=== PATIENT | female | born 1980 | race Caucasian/White ===

== ENCOUNTER 2018-06-15 19:17 | Emergency (ER) | payer BC, SELFPAY ==
[2018-06-15 19:25] VITALS: BP 157/74; PULSE 118; RESP 22; TEMP 38.7; O2SAT 98
[2018-06-15 19:42] LABS: Bilirubin Negative (Negative); Blood Negative (Negative); Clarity Clear; Glucose Negative (Negative); Ketones Negative (Negative); Leukocyte Esterase Negative (Negative); Nitrite Negative (Negative); Urobilinogen 0.2 EU/dL (Up TO 0.2); pH 7.5 (5-8)
--- NOTE | 2018-06-15 19:53 | DI.CT_ITS ---
SYMPTOM/DIAGNOSIS: LOW ABD PAIN, FEVER ABDOMEN AND PELVIC CT: CT examination of the abdomen and pelvis was performed with a bolus infusion of 100 cc's of Omnipaque 350. Images obtained through the lung bases are unremarkable. Liver and spleen appear intact as does the pancreas. No biliary dilatation is seen. Gallbladder is contracted. Abdominal aorta is of normal diameter and no major vascular abnormality is seen. Appendix is not specifically visualized but there is no evidence of appendicitis. There is colonic wall thickening of the sigmoid with adjacent increased fat attenuation consistent with uncomplicated diverticulitis, no evidence of perforation. Adrenals are unremarkable bilaterally. Tiny nonobstructing bilateral renal calculi and small presumed right renal cortical cysts noted. Otherwise urinary tract structures unremarkable. There is an IUD in place in the uterine midline. Small fat containing umbilical hernia noted. CONCLUSION: Findings consistent with acute sigmoid diverticulitis, uncomplicated. Incidental bilateral non obstructing renal calculi noted.
--- NOTE | 2018-06-15 19:53 | W.ED.GENAD ---
Discharge Plan Disposition Patient Disposition: HOME Condition: Stable Discharge Details Chief Complaint: FlankPain Clinical Impression: Diverticulitis Primary Care Provider: Alexa Penn ED Provider: Nemesio Jamison Home Meds and New Rx's Prescriptions: New metronidazole [Flagyl] 500 mg tablet 500 mg PO TID Qty: 21 RF: 0 ciprofloxacin HCl [Cipro] 500 mg tablet 500 mg PO BID Qty: 14 RF: 0 ondansetron 4 mg tablet,disintegrating 4 mg PO TID PRN (Reason: nausea and vomiting) 5 Days Qty: 30 RF: 0 No Action Mirena 1 EACH intrauterine device 1 RF: 0 Discharge Instructions Instructions: Diverticulitis (ED) Additional Instructions: You have diverticulitis. You can take 1000mg tylenol and 600mg ibuprofen every 6 hours for pain as needed for nausea take zofran as prescribed Do not drink alcohol while taking flagyl follow up with your primary care provider within 1-2 weeks if you have severe worsening of pain, persistent vomit, or new symptoms such as chest pain or shortness of breath return to the emergency department Medical Decision Making 37 yo female who denies chronic medical problems comes in with cc of lower abdominal pain for 3 days and fevers today. Denies vomit, chest pain, sob, headaches, dysuria or frequency. .She has pain throughout the lower abdomen without guarding or rebound, no rashes noted of pelvis or abdomen. Given her fever here and pain will obtain cbc, lactate, ua and image to eval for possibel abscess vs diverticulitis vs pyelo among other pathology labs unremarkable. CT shows diverticulitis. She states pain is better with toradol and remains HD stable, feel she is appropriate for outpt management. Will start abx and return precautions given Differential Diagnosis pyelo, diverticulitis, appendicitis Imaging Data Radiologic Study: Attestation: I personally reviewed and interpreted this imaging study as follows: Imaging: CT Scan Radiologist's impression: IMPRESSION: Colonic diverticulosis, acute diverticulitis confined to the sigmoid colon. No evidence for perforation Lab Data Lab results reviewed: Yes I reviewed the patient's lab results. HPI General Mode of arrival: ambulatory. Date/Time Provider Initiated Documentation: 06/15/18 19:44. Limitations to Documentation: no limitations. Information obtained by: patient. History of Present Illness 37 year old F presents to the emergency department with the chief complaint of lower abdominal pain, described as moderate, with intensity rated at 6. Quality is described as stabbing, and is localized to the abdomen. Patient reports no radiation. Patient started experiencing this day(s) (3) and it has been constant. No relieving factors improve symptom(s), No exacerbating factors reported . Patient notes fever/chills. Patient did receive the following treatments prior to arrival, none Related Data Home Medications Medication Instructions Recorded Confirmed levonorgestrel [Mirena] 1 03/17/16 ciprofloxacin HCl [Cipro] 500 mg PO BID #14 tab 06/15/18 metronidazole [Flagyl] 500 mg PO TID #21 tab 06/15/18 ondansetron 4 mg PO TID PRN 5 Days #30 tab 06/15/18 Previous Rx's Medication Instructions Recorded ciprofloxacin HCl [Cipro] 500 mg PO BID #14 tab 06/15/18 metronidazole [Flagyl] 500 mg PO TID #21 tab 06/15/18 ondansetron 4 mg PO TID PRN 5 Days #30 tab 06/15/18 Allergies Allergy/AdvReac Type Severity Reaction Status Date / Time phenazopyridine HCl AdvReac Unverified 06/15/18 19:30 [From Pyridium] Novacane AdvReac Shakiness Uncoded 06/15/18 19:30 General Stated Complaint: FlankPain EILEEN: 3 Review of Systems Review of Systems All systems reviewed & are unremarkable except as noted in HPI and below Constitutional Denies weakness ENT Denies change in voice Cardiovascular Denies chest pain and Denies dyspnea Respiratory Denies dyspnea Gastrointestinal Denies nausea and Denies vomiting Genitourinary Denies dysuria Integumentary/Breasts Denies rash Neurologic Denies weakness Psychiatric Denies depression [facility] Medical History Heart murmur Nephrolithiasis Surgical History Ligation of fallopian tube Tonsillectomy Family History Mother Diabetes Essential hypertension Father Essential hypertension Heart disease Myocardial infarction Brother Diabetes Essential hypertension Grandmother Diabetes Grandmother Diabetes Maternal Aunt Personal history of malignant neoplasm Grandfather No problems noted. Social History Smoking/Tobacco Use Status: Current-Occasional Exam Const General: no acute distress Orientation: alert HENMT Head: normal to inspection Ears: external ears normal General nose exam: external nose normal Mouth: moist mucous membranes Eyes General: appearance normal, both eyes and all related structures Neck Neck: normal visual inspection Resp Effort & Inspection: normal respiratory effort and able to speak in complete sentences Cardio Rate: regular rate GI Inspection: normal to inspection Skin General skin exam: no rashes or lesions noted Neuro General: alert and oriented x3 Extrem General: normal to inspection Psych Mental Status: mental status grossly normal Course Vital Signs Temperature 38.7 C H 06/15/18 19:25 Pulse 118 H 06/15/18 19:25 Respiratory Rate 22 06/15/18 19:25 Blood Pressure 157/74 H 06/15/18 19:25 Pulse Oximetry 98 06/15/18 19:25 Temperature 38.7 C H 06/15/18 19:25 Temperature Source Temporal Artery Scan 06/15/18 19:25 Pulse 118 H 06/15/18 19:25 Respiratory Rate 22 06/15/18 19:25 Respiratory Effort 06/15/18 19:30 Blood Pressure 157/74 H 06/15/18 19:25 Pulse Oximetry 98 06/15/18 19:25 Oxygen Delivery Method Room Air 06/15/18 19:25 Oxygen Flow Rate 0 06/15/18 19:25 Pain Level 8 06/15/18 19:31 Lab/Test Results Lab/Test Results: 06/15/18 19:44 Blood Blood Culture - Pending 06/15/18 19:44 Blood Blood Culture - Pending Laboratory Tests Range/Units 06/15/18 19:35 Urine Color (Yellow) Yellow Urine Clarity Clear Urine pH (5-8) 7.5 Ur Specific [place] (1.005-1.025) 1.020 Urine Protein (Negative) mg/dL Negative Urine Ketones (Negative) mg/dL Negative Urine Blood (Negative) Negative Urine Nitrite (Negative) Negative Urine Bilirubin (Negative) Negative Urine Urobilinogen (Up TO 0.2) EU/dL 0.2 Ur Leukocyte Esterase (Negative) Negative Urine Glucose (Negative) mg/dL Negative POC- Test(urine) Negative
[2018-06-15 20:03] LABS: Lactate-non-spesis 1.4 mmol/L (0.6-1.4)
[2018-06-15] MEDS: Omnipaque 350 MG/ML 100 ML BTL IJ (20:17)
[2018-06-15 20:19] LABS: ALT 21 U/L (12-78); AST 12 U/L (15-37); Alkaline Phosphatase 67 U/L (46-116); Anion Gap 10.6 mmol/L (3-11); BUN 15 mg/dL (7-18); Bilirubin, Total 0.4 mg/dL (0.2-1.0); CO2 27.4 mmol/L (21.0-32.0); CREATININE 0.89 mg/dL (0.55-1.02); Calcium 9.3 mg/dL (8.5-10.1); Chloride 100 mmol/L (98-107); Glucose 105 mg/dL (70-100); Lipase 159 U/L (73-393); Potassium 3.8 mmol/L (3.5-5.1); Sodium 138 mmol/L (136-145); Total Protein 8.3 g/dL (6.4-8.2)
[2018-06-15] MEDS: Normal Saline 1,000 ML 1000 ML IV (20:25)
[2018-06-15] MEDS: Ketorolac 15 MG/ML VIAL IVP (20:25)
[2018-06-15 20:31] LABS: Abs Immature Grans 0.04 k/cumm (0.0-0.09); Absolute Basophil Count 0.03 k/cumm (0.0-0.2); Absolute Eosinophil Count 0.06 k/cumm (0.0-0.7); Absolute Monocyte Count 0.98 k/cumm (0.11-0.7); Absolute Neutrophil Count 10.96 k/cumm (1.2-6.7); Basophils % 0.2; Eosinophils % 0.4; HCT 37.5 % (36.0-46.0); HGB 12.5 g/dL (12.0-15.5); Immature Grans % 0.3; Lymphocytes % 13.4; Mean Corp. HGB Concentration 33.3 g/dL (32.0-36.0); Mean Corpuscular Hemoglobin 27.7 pg (27.0-33.0); Mean Platelet Volume 10.6 fL (8.0-11.0); Neutrophils % 78.7; Platelet Count 317 x1000/uL (130-400); RBC 4.52 m/cumm (4.00-5.20); RBC Distribution Width 14.4 % (11.7-14.6); White Blood Cell Count 13.93 k/cumm (4.4-10.8)
[2018-06-15 20:32] LABS: Absolute Lymphocyte Count 1.87 k/cumm (1.2-3.4)
--- NOTE | 2018-06-15 21:00 | DI.VRAD_ITS ---
EXAM: CT Abdomen and Pelvis With Contrast EXAM DATE/TIME: 06/15/2018 7:54 PM CLINICAL HISTORY: 37 years old, female; Pain and signs and symptoms; Fever; Abdominal pain TECHNIQUE: Axial computed tomography images of the abdomen and pelvis with intravenous contrast. Coronal and sagittal reformatted images were created and reviewed. COMPARISON: CT RENAL COLIC WO CONTRAST 01/08/2015 1:41 AM FINDINGS: Lower thorax: No acute findings. ABDOMEN: Liver: Enlarged liver measures 19.3 cm in craniocaudal dimensions. Gallbladder and bile ducts: No calcified stones. No ductal dilation. Pancreas: Unremarkable. No ductal dilation. Spleen: Unremarkable. No splenomegaly. Adrenals: Unremarkable. No mass. Kidneys and ureters: Right renal cortical cyst measures 9 mm. Cannot rule out punctate nonobstructing left renal calculus, 2 mm. Questionable punctate right renal calculus, difficult to evaluate in the presence of IV contrast. Stomach and bowel: Short segment wall thickening within the sigmoid colon and pericolonic stranding, likely acute diverticulitis. No evidence for perforation. Appendix: No evidence of appendicitis. PELVIS: Bladder: Unremarkable as visualized. Reproductive: IUD in place. ABDOMEN and PELVIS: Intraperitoneal space: No free air. No significant fluid collection. Bones/joints: No acute fracture. No dislocation. Soft tissues: The abdomen is obese. Vasculature: Duplicated IVC. Lymph nodes: No enlarged lymph nodes. IMPRESSION: Colonic diverticulosis, acute diverticulitis confined to the sigmoid colon. No evidence for perforation. Dictated and Authenticated by: George Cavanaugh MD. Ordering:KEMI Herr MD
[2018-06-15] MEDS: Ondansetron O.D.T. 4 MG TABEF PO (21:31)
[2018-06-15] MEDS: Ciprofloxacin 500 MG TAB PO (21:31)
[2018-06-15] MEDS: Normal Saline Flush 10 ML SYR IVP (21:31)
[2018-06-15] MEDS: metroNIDAZOLE 500 MG TAB PO (21:31)
[2018-06-15 22:24] VITALS: BP 137/86; PULSE 112; RESP 22; TEMP 39; O2SAT 99
== END 2018-06-15 22:27 | disposition home or self-care (01) ==
PROVIDERS: Physician Assistant; Emergency Provider Emergency Medicine; PCP Nurse Practitioner Family
DX: K57.32 Diverticulitis of large intestine without perforation or abscess without bleeding (principal); R50.9 Fever, unspecified; Z87.442 Personal history of urinary calculi; Z87.440 Personal history of urinary (tract) infections
CPT/HCPCS: 36415; 80053; 81025; 83690; 87040; 96361; 96374; 99285; 74177; 81003; 83605; 85025; 87086; J1885; J3490

== ENCOUNTER 2019-01-01 09:17 | Outpatient (CLI) | payer BC, SELFPAY ==
[2019-01-01 10:35] LABS: Hemoglobin A1C 6.8 % (4.5-6.2)
[2019-01-01 11:34] LABS: Anion Gap 9.7 mmol/L (3-11); BUN 13 mg/dL (7-18); CO2 28.3 mmol/L (21.0-32.0); CREATININE 0.82 mg/dL (0.55-1.02); Calcium 8.9 mg/dL (8.5-10.1); Calculated LDL 95 mg/dL; Chloride 101 mmol/L (98-107); Cholesterol 157 mg/dL (50-200); Glucose 139 mg/dL (70-100); HDL Cholesterol 42 mg/dL (40-60); Potassium 4.4 mmol/L (3.5-5.1); Sodium 139 mmol/L (136-145); Triglyceride 101 mg/dL (30-150)
[2019-01-02 10:09] LABS: HIV-1/2 Ag & Ab Screen Negative (NEGAT)
== END 2019-01-01 09:37 ==
PROVIDERS: PCP Nurse Practitioner Family; Visit Provider Nurse Practitioner Family
DX: Z13.1 Encounter for screening for diabetes mellitus (principal); Z68.42 Body mass index [BMI] 45.0-49.9, adult; Z13.220 Encounter for screening for lipoid disorders; Z11.4 Encounter for screening for human immunodeficiency virus [HIV]
CPT/HCPCS: 36415; 80048; 80061; 83721; 87389; 83036

== ENCOUNTER 2019-01-03 12:37 | Outpatient (REF) | payer BC, SELFPAY ==
[2019-01-03 14:02] LABS: COMMENT (LAB VIEW ONLY) 114.55 mg/dL; Microalb ug/mg Crea 6.9 ug/mg Cr
== END 2019-01-03 12:57 ==
LOC: LBN 12:37
PROVIDERS: PCP Nurse Practitioner Family; Visit Provider Nurse Practitioner Family
DX: E11.9 Type 2 diabetes mellitus without complications (principal)
CPT/HCPCS: 82043; 82570

== ENCOUNTER 2019-09-13 13:26 | Outpatient (CLI) | payer BC, SELFPAY ==
[2019-09-15 09:11] LABS: Syphilis Total Ab w/Reflex Nonreactive (Nonreactive)
[2019-09-16 09:58] LABS: HIV-1/2 Ag & Ab Screen Negative (Negative); Hepatitis B Surface Ag Negative (Negative); Hepatitis C Ab w Rflx HCV PCR Negative (Negative)
== END 2019-09-13 13:46 ==
PROVIDERS: PCP Nurse Practitioner Family; Visit Provider Nurse Practitioner Family
DX: Z11.3 Encounter for screening for infections with a predominantly sexual mode of transmission (principal); Z11.4 Encounter for screening for human immunodeficiency virus [HIV]; Z11.59 Encounter for screening for other viral diseases
CPT/HCPCS: 36415; 86803; 87340; 87389; 86780

== ENCOUNTER 2019-09-13 16:54 | Outpatient (REF) | payer BC, SELFPAY ==
[2019-09-16 13:35] LABS: Chlamydia Result Negative (Negative); GC Result Negative (Negative)
== END 2019-09-13 17:14 ==
LOC: LBN 16:54
PROVIDERS: PCP Nurse Practitioner Family; Visit Provider Nurse Practitioner Family
DX: Z11.3 Encounter for screening for infections with a predominantly sexual mode of transmission (principal)
CPT/HCPCS: 87491; 87591

== ENCOUNTER 2020-03-08 12:21 | Emergency (ER) | payer BC, SELFPAY ==
--- NOTE | 2020-03-08 12:22 | ED.GENADUL_ITS ---
Discharge Plan Disposition Patient Disposition: HOME Condition: Improving Discharge Details Clinical Impression: Dental infection, Fracture of tooth Primary Care Provider: Alexa Penn ED Provider: Mira Thompson Home Meds and New Rx's Prescriptions: New amoxicillin-pot clavulanate [Augmentin] 875-125 mg tablet 1 tab PO BID Qty: 14 RF: 0 oxycodone 5 mg tablet 5 mg PO QID PRN (Reason: pain) Qty: 9 RF: 0 Continued (DME) blood-glucose meter misc See Rx Instructions .ROUTE .MEDSUPPLY Qty: 1 RF: 0 (DME) Blood Glucose Test strip See Rx Instructions .ROUTE .MEDSUPPLY Qty: 100 RF: 3 (DME) lancets misc See Rx Instructions .ROUTE .MEDSUPPLY Qty: 100 RF: 3 Mirena 1 EACH intrauterine device 1 RF: 0 acetaminophen 500 mg Tablet 1,000 mg PO PRN PRNRF: 0 ibuprofen 400 mg Tablet 400 mg PO Q6H PRNRF: 0 Discontinued amoxicillin 875 mg Tablet 875 mg PO BID RF: 0 Discharge Instructions Instructions: Dental Abscess (ED) Additional Instructions: Please encourage water intake. You may continue with Tylenol and/or ibuprofen as needed for discomfort. You may augment this with the oxycodone as prescribed. Please take this only as prescribed do not drive will take this medication. Please keep the oxycodone in a safe place and out of reach of others. Please stop the amoxicillin and begin the Augmentin as prescribed. I would like for you to follow-up closely with dentist, attached the list of local dentist. Please call tomorrow and let them know that you have been seen multiple times for this same broken tooth. If you develop fever/chills, increased pain, inability open your mouth or other new/worsening symptoms please seek care urgently once again. Stand Alone Forms: Work Release Referrals: Alexa Penn NP [Primary Care Provider] - Medical Decision Making Patient is a pleasant 39-year-old female presenting to complaint of left lower posterior dental pain. She reports the pain began a few weeks ago after a filling fell out. Patient does have a missing portion of the #17 tooth. She denies any fevers or chills. She reports that she was initially seen by primary care who started her on clindamycin 3 mg 3 times daily. States that she stopped this proximally 1 week ago. She does report that her pain did improve slightly with this but then it came back and continue to increase. Patient was then seen yesterday at an urgent care which time she was started on p.o. amoxicillin. She denies any fevers or chills. Has had difficulty sleeping, eating and drinking secondary to the severity of pain. On exam, the patient does have cracked area of the #17 tooth and pain with palpation over the buccal side of the gumline. She does have some swelling and erythema over here. the patient's pain is likely twofold, potentially from infection as well as the broken area that is likely exposing her root. Patient I discussed her/benefits as well as expected procedural steps associated with dental block to help with discomfort. She was understanding and wishes to proceed. Also plan to transition the patient from amoxicillin to Augmentin. See procedure note. 1.5 mL of 0.5% bupivacaine was infiltrated into the base #17 2 for alveolar block. Patient tolerated this well and had immediate resolution of her discomfort. She was given return precautions. Transition to Augmentin. Encourage close follow-up with dentist. List of local dentist was given to the patient. She was so uncomfortable, I do feel that small course of the oxycodone would be appropriate particularly some of this may be associated more with fractured tooth. Discussed risks/benefits of this medication. All quesitons and concerns were addressed she is in agreement with this plan. HPI General Mode of arrival: ambulatory . Date/Time Provider Initiated Documentation: 03/08/20 12:22 . Limitations to Documentation: no limitations . Information obtained by: patient and RN notes reviewed . History of Present Illness 39 year old F presents to the emergency department with the chief complaint of left posterior lower dental pain, described as severe, with intensity rated at 10. Quality is described as stabbing, and is localized to the mouth. Patient reports no radiation. Patient started experiencing this week(s) and it has been constant. Medication improves symptom(s), (imporoved briefly with clindamycin) Eating worsens symptoms . Patient notes loss of appetite; denies fever/chills, nausea/vomiting, rash and shortness of breath. Patient did receive the following treatments prior to arrival, NSAID and other (clindamycin 300mg TID x 10 days one week ago, currently on amoxicillin) Related Data Home Medications Medication Instructions Recorded Confirmed Mirena 1 03/17/16 01/28/20 blood sugar diagnostic #100 each 01/03/19 01/28/20 blood-glucose meter #1 each 01/03/19 01/28/20 lancets #100 each 01/03/19 01/28/20 acetaminophen 1,000 mg PO PRN PRN 03/08/20 03/08/20 amoxicillin-pot clavulanate 1 tab PO BID #14 tab 03/08/20 [Augmentin] ibuprofen 400 mg PO Q6H PRN 03/08/20 03/08/20 oxycodone 5 mg PO QID PRN #9 tab 03/08/20 Previous Rx's Medication Instructions Recorded blood sugar diagnostic #100 each 01/03/19 blood-glucose meter #1 each 01/03/19 lancets #100 each 01/03/19 amoxicillin-pot clavulanate 1 tab PO BID #14 tab 03/08/20 [Augmentin] oxycodone 5 mg PO QID PRN #9 tab 03/08/20 Allergies Allergy/AdvReac Type Severity Reaction Status Date / Time phenazopyridine HCl AdvReac vomiting Verified 03/08/20 12:30 [From Pyridium] Novacane AdvReac Shakiness Uncoded 03/08/20 12:30 General EILEEN: 3 Review of Systems Constitutional Constitutional: Reports as per HPI, Denies chills, Denies fatigue, Denies fever(s), Denies headache(s) and Denies poor appetite Eyes Eyes: Denies change in vision and Denies irritation ENT Ears, Nose, Mouth, and Throat: Reports as per HPI, Reports dental pain, Denies d ysphagia, Denies dizziness, Denies dry mouth, Denies ear discharge, Denies otalgia, Reports facial pain, Denies headache(s), Denies hoarseness, Denies lip swelling, Denies nasal congestion, Denies odynophagia and Denies sore throat Cardiovascular Cardiovascular: Reports as per HPI and Denies chest pain Respiratory Respiratory: Reports as per HPI and Denies cough Gastrointestinal Gastrointestinal: Reports as per HPI, Denies dysphagia, Denies nausea, Denies odynophagia and Denies vomiting Integumentary/Breasts Skin/Breast: Reports as per HPI, Denies erythema, Denies rash and Denies skin pain Neurologic Neurologic: Reports as per HPI, Denies dizziness and Denies headache(s) Endocrine Endocrine: Denies fatigue Allergic/Immunologic Allergic/Immunologic: Denies lip swelling [facility] Medical History (Updated 03/08/20 @ 13:02 by NISHANT Alicia) BMI 45.0-49.9, adult (12/18/14) Heart murmur (12/18/14) Nephrolithiasis JOSSY (obstructive sleep apnea) Pulmonic stenosis (01/23/15) With murmur diagnosed at age 8, had been followed at [facility] but then lost to f/u. Cardiology consult 12/2014: III/ mid systolic crescendo decrescendo murmur at L upper sternal border w/o radiation. Last echo 12/2014: EF 60-65%, mild mitral regurg, mild pulmonic stenosis --> Recommended repeat echo in 2 yrs (2017). Tobacco use disorder QUIT 03/2018 (0.5 PPD x 5 years = 2.5 PY) Type 2 diabetes mellitus (~12/2018) Venous insufficiency of both lower extremities (01/23/15) Surgical History Ligation of fallopian tube Tonsillectomy Family History Mother , CAD at age 55. Diabetes Essential hypertension Father Essential hypertension Heart disease [place], Stents Myocardial infarction Brother Diabetes Essential hypertension Grandmother Diabetes Grandmother Diabetes Maternal Aunt Breast cancer Social History Smoking/Tobacco Use Status: Former Tobacco Use Quit Date: 03/26/18 Pack-years: 3 Tobacco: How many years used: 5 Second Hand Exposure: Yes Alcohol Intake: never Drug use: Never Substance use type: does not use Caregiver/Support person: No Household members: significant other, children and other Details: Lives with suzie Sheridan and daughter Number of Children: 3 Communication Needs: None Education Level: high school 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 [employer] Pets and animals: Yes Pets and animals: fish Sexually active: Yes Current gender identity: female What type of physical activity do you participate in: none Seatbelt use: sometimes Water heater temp set <120 deg: Yes Working smoke detector in home: Yes Fire extinguisher in home: Yes Carbon monox detector in home: Yes Firearms in home: No Do you feel safe at home: Yes Do you feel safe in your relationship?: Yes Exam Const General: cooperative, healthy appearing, uncomfortable, no acute distress, well developed and well groomed Nutritional Appearance: well nourished and obese Orientation: alert and awake [facility] Head: normal to inspection, normocephalic and atraumatic Ears: hearing grossly normal bilaterally, external ears normal and TM's normal bilaterally General nose exam: external nose normal and nares normal Face and sinus: normal facial exam, sinuses nontender and face symmetric Mouth: oral mucosae normal, lip normal, tongue normal, oropharynx normal, moist mucous membranes, no trismus and No restricted motion Teeth and gingiva: abnormal dentition (as described) Teeth image: 1. broken area of tooth, this is area of discomfort. Pain maximal along the buccal side of the gum line. Small amount of swelling noted. No swelling under his tongue. No abnorality to posterior oropharynx. Throat: posterior oropharynx normal, tonsils normal and uvula midline Eyes General: appearance normal, both eyes and all related structures Neck Neck: normal visual inspection, full ROM, no lymphadenopathy, supple and no anterior neck swelling Resp Effort & Inspection: normal respiratory effort, able to speak in complete sentences and no respiratory distress Auscultation: clear to auscultation bilaterally, no rales, no rhonchi and no wheezes Cardio Rate: regular rate Rhythm: regular rhythm Heart Sounds: S1 normal and S2 normal Skin General skin exam: no rashes or lesions noted Trauma: no lacerations or abrasions Neuro General: patient alert and patient awake Cognition: normal cognition Speech: speech normal Gait: normal gait Psych Appearance: grossly normal and well kempt Mental Status: mental status grossly normal Speech and Movement: speech and movement normal Procedures Nerve Block Nerve Block 1: Time out performed: Yes Local Anesthetic: Bupivicaine 0.5% Amount of anesthesia used (mL): 1.5 Side: left Intraoral Nerve Block: inferior alveolar Procedure Successful: Yes Patient Tolerated Procedure: well and no complications Complications: none
[2020-03-08 12:26] VITALS: BP 175/102; PULSE 75; RESP 20; TEMP 36.5; O2SAT 99
[2020-03-08] MEDS: Bupivacaine 0.5% Pres-Free 30 ML VIAL IJ (12:53)
== END 2020-03-08 13:10 | disposition home or self-care (01) ==
PROVIDERS: Emergency Provider Physician Assistant; PCP Nurse Practitioner Family
DX: R68.84 Jaw pain (principal); K04.7 Periapical abscess without sinus; K03.81 Cracked tooth; E11.9 Type 2 diabetes mellitus without complications
CPT/HCPCS: 64450

== ENCOUNTER 2020-08-04 11:55 | Emergency (ER) | payer OTHER, SELFPAY ==
[2020-08-04 11:59] VITALS: BP 165/74; PULSE 78; RESP 20; TEMP 36.7; O2SAT 99
--- NOTE | 2020-08-04 12:29 | W.ED.GENAD ---
Discharge Plan Disposition Patient Disposition: HOME Condition: Improving Discharge Details Clinical Impression: Acute diverticulitis Primary Care Provider: Alexa Penn ED Provider: Zuri Blackwood Home Meds and New Rx's Prescriptions: New amoxicillin-pot clavulanate [Augmentin] 875-125 mg tablet 1 tab PO BID 10 Days Qty: 20 RF: 0 Continued (DME) blood-glucose meter misc See Rx Instructions .ROUTE .MEDSUPPLY Qty: 1 RF: 0 (DME) Blood Glucose Test strip See Rx Instructions .ROUTE .MEDSUPPLY Qty: 100 RF: 3 (DME) lancets misc See Rx Instructions .ROUTE .MEDSUPPLY Qty: 100 RF: 3 Mirena 1 EACH intrauterine device 1 RF: 0 acetaminophen 500 mg Tablet 1,000 mg PO PRN PRNRF: 0 ibuprofen 400 mg Tablet 400 mg PO Q6H PRNRF: 0 Discharge Instructions Instructions: Diverticulitis (ED), Diverticulitis Diet (ED) Additional Instructions: Drink plenty of fluids and get plenty of rest. Alternate tylenol and motrin as needed and directed for pain. Take the tramadol for pain not relieved with Tylenol or Motrin. Take the antibiotics until finished. Follow-up with your primary care doctor in 1 week. Return to the emergency department with any worsening or new concerning symptoms. Stand Alone Forms: Work Release Discharge Data Discharge Date/Time-TO BE ENTERED AT DEPARTURE: 08/04/20 15:42 Discharge Physician: Zuri Blackwood Medical Decision Making 39-year-old female with a history of obesity, obstructive sleep apnea, diabetes, diverticulitis who presents with intermittent crampy left lower quadrant abdominal pain for the past 2 days. She is afebrile and appears nontoxic. She does appear uncomfortable but is declining any narcotic pain medication at this time. She has tenderness palpation of her left lower quadrant and suprapubic region. Differential diagnosis includes acute diverticulitis, UTI, pyelonephritis, colitis. Will place an IV, screening labs, urinalysis, CT abdomen and pelvis and give Toradol and fluids and reassess. Labs and imaging reviewed. White blood cell count mildly elevated at 11.18. CT notes: IMPRESSION: Sigmoid diverticulosis. Mild increased attenuation in the fat surrounding the proximal sigmoid colon. This may represent an early diverticulitis. No abscess or free air. Results of this exam have been verbally communicated with provider. Patient reassessed and she feels better. She is still complaining of some pain but declined any additional pain medication. She was given a dose of Augmentin here. She was given Augmentin and tramadol for home as needed. Advised to follow up with the primary care doctor for re-evaluation. Usual and customary return precautions given prior to discharge. Medical Records Medical records reviewed: Yes I reviewed the patient's medical records. Imaging Data Radiologic Study: Radiologist's impression: CT ABDOMEN PELVIS W CLINICAL HISTORY: LLQ abd pain,h/o diverticulitis,r/o diverticulitis TECHNIQUE: Imaging Protocol: Axial computed tomography images with coronal and sagittal reformatted images were created and reviewed CONTRAST MATERIAL: Intravenous: Omnipaque 350 Contrast volume:99 Oral: No COMPARISON: CT CT ABDOMEN PELVIS W from 06/15/2018 FINDINGS: ABDOMEN: Lung Bases: Normal where visualized. Liver: Normal density. No measurable mass. Portal, Superior Mesenteric, and Splenic Veins: Unremarkable. Gallbladder and Biliary Tract: No radiodense calculus or dilation. Pancreas: Normal density, no abnormal calcifications or inflammatory process. Spleen: Normal. Adrenals: No masses seen. Kidneys: Normal size, contour and axis. Bilateral nephrolithiasis no hydronephrosis. 1 cm simple right renal cyst. No further workup is recommended. Abdominal Aorta: Abdominal portion non-dilated. 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 Bowel: No evidence of obstruction. No evidence of appendicitis. There are diverticula seen in the sigmoid colon. There is mild stranding seen adjacent to a short segment of the proximal sigmoid colon which may represent early diverticulitis. No abscess or free air. Peritoneal Cavity: No ascites, collection or mesenteric inflammatory response. No free air. Lymph Nodes: Within normal limits. Bones: Within normal limits for the patient's age. Soft Tissues: Unremarkable. PELVIS: Bladder: Symmetric distention, no gross wall thickening. Reproductive Organs: There is an IUD in good position. Lymph Nodes: Within normal limits. Bones: Within normal limits for the patient's age. IMPRESSION: Sigmoid diverticulosis. Mild increased attenuation in the fat surrounding the proximal sigmoid colon. This may represent an early diverticulitis. No abscess or free air. Results of this exam have been verbally communicated with provider. Lab Data Lab results reviewed: Yes I reviewed the patient's lab results. Labs: Laboratory Tests Range/Units 08/04/20 08/04/20 08/04/20 12:15 12:15 12:15 WBC (4.4-10.8) 10^3/uL 11.18 H RBC (3.93-5.22) 10^6/uL 5.08 Hgb (11.2-15.7) g/dL 13.8 Hct (36.0-46.0) % 43.2 MCV (80-95) fL 85.0 MCH (27.0-33.0) pg 27.2 MCHC (32.0-36.0) % 31.9 L RDW (11.7-14.6) % 13.8 Plt Count (130-400) 10^3/uL 350 MPV (8.0-11.0) fL 10.5 Immature Gran % 0.4 Neutrophils % 59.0 Lymphocytes % 29.9 Monocytes % 7.3 Eosinophils % 2.5 Basophils % 0.9 Nucleated RBC % % 0 Absolute Neutrophils (1.2-6.7) 10^3/uL 6.60 Absolute Lymphocytes (1.2-3.4) 10^3/uL 3.34 Absolute Monocytes (0.1-0.8) 10^3/uL 0.82 H Absolute Eosinophils (0.0-0.7) 10^3/uL 0.28 Absolute Basophils (0.0-0.2) 10^3/uL 0.10 Sodium (136-145) mmol/L 138 Potassium (3.5-5.1) mmol/L 3.7 Chloride (98-107) mmol/L 102 Carbon Dioxide (21.0-32.0) mmol/L 27.3 Anion Gap (3-11) mmol/L 8.7 BUN (7-18) mg/dL 10 Creatinine (0.55-1.02) mg/dL 0.8 Estimated GFR/1.73 m2 (mL/min/1.73m2) >= 60.00 Glucose (74-106) mg/dL 121 H Calcium (8.5-10.1) mg/dL 9.1 Total Bilirubin (0.2-1.0) mg/dL 0.2 AST (15-37) U/L 11 L ALT (14-59) U/L 18 Alkaline Phosphatase (46-116) U/L 66 Total Protein (6.4-8.2) g/dL 8.7 H Albumin (3.4-5.0) g/dL 3.9 Urine Color (Yellow) Yellow Urine Clarity (Clear) Clear Urine pH (5-8) 6.5 Ur Specific [place] (1.005-1.025) 1.015 Urine Protein (Negative) mg/dL Negative Urine Ketones (Negative) mg/dL Negative Urine Blood (Negative) Negative Urine Nitrite (Negative) Negative Urine Bilirubin (Negative) Negative Urine Urobilinogen (Up TO 0.2) EU/dL 0.2 Ur Leukocyte Esterase (Negative) Small H Urine RBC (0-2) HPF Negative Urine WBC (0-5) HPF 10-20 H Ur Epithelial Cells (Negative) HPF Moderate Urine Crystals (Negative) HPF Negative Urine Bacteria (Negative) HPF Few Urine Casts (Negative) LPF Negative Urine Mucus (Negative) Negative Urine Other (Negative) Moderate trichomonas Ur Culture Indicated? No/sq. contamination Urine Glucose (Negative) mg/dL Negative HPI General Mode of arrival: ambulatory. Date/Time Provider Initiated Documentation: 08/04/20 11:59. Limitations to Documentation: no limitations. Information obtained by: patient. HPI Narrative: Patient is a 39-year-old female with a history of obesity, obstructive sleep apnea, diabetes, tubal ligation who presents for left lower quadrant abdominal pain similar to previous episodes of diverticulitis. Patient states her symptoms started a few days ago and initially were intermittent and now appears more constant. She states the pain is crampy and currently 7/10. She states she has been eating more seeds and smoothies that she has been making to make some healthy lifestyle changes. She denies any fever, nausea, vomiting, urinary symptoms or diarrhea. She states she drove herself to the ER. Related Data Home Medications Medication Instructions Recorded Confirmed Mirena 1 03/17/16 01/28/20 blood sugar diagnostic #100 each 01/03/19 01/28/20 blood-glucose meter #1 each 01/03/19 01/28/20 lancets #100 each 01/03/19 01/28/20 acetaminophen 1,000 mg PO PRN PRN 03/08/20 08/04/20 ibuprofen 400 mg PO Q6H PRN 03/08/20 08/04/20 amoxicillin-pot clavulanate 1 tab PO BID 10 Days #20 tab 08/04/20 [Augmentin] Previous Rx's Medication Instructions Recorded blood sugar diagnostic #100 each 01/03/19 blood-glucose meter #1 each 01/03/19 lancets #100 each 01/03/19 amoxicillin-pot clavulanate 1 tab PO BID 10 Days #20 tab 08/04/20 [Augmentin] Allergies Allergy/AdvReac Type Severity Reaction Status Date / Time phenazopyridine HCl AdvReac vomiting Verified 08/04/20 12:05 [From Pyridium] Novacane AdvReac Shakiness Uncoded 08/04/20 12:05 General Stated Complaint: Abd Prob EILEEN: 3 Review of Systems All systems reviewed & are unremarkable except as noted in HPI and below Constitutional Constitutional: Reports as per HPI, Denies chills and Denies fever(s) Eyes Eyes: Denies blurry vision ENT Ears, Nose, Mouth, and Throat: Denies dizziness, Denies sore throat and Denies throat swelling Cardiovascular Cardiovascular: Denies chest pain and Denies dyspnea Respiratory Respiratory: Denies cough and Denies dyspnea Gastrointestinal Gastrointestinal: Reports abdominal pain, Denies diarrhea and Denies vomiting Genitourinary Genitourinary: Denies hematuria and Denies dysuria Musculoskeletal Musculoskeletal: Denies back pain and Denies numbness Integumentary/Breasts Skin/Breast: Denies lesions and Denies rash Neurologic Neurologic: Denies dizziness, Denies localized weakness and Denies numbness Allergic/Immunologic Allergic/Immunologic: Denies throat swelling [facility] Medical History (Updated 08/04/20 @ 15:21 by Zuri Blackwood DO) BMI 45.0-49.9, adult (12/18/14) Heart murmur (12/18/14) Nephrolithiasis JOSSY (obstructive sleep apnea) Pulmonic stenosis (01/23/15) With murmur diagnosed at age 8, had been followed at [facility] but then lost to f/u. Cardiology consult 12/2014: III/ mid systolic crescendo decrescendo murmur at L upper sternal border w/o radiation. Last echo 12/2014: EF 60-65%, mild mitral regurg, mild pulmonic stenosis --> Recommended repeat echo in 2 yrs (2016). Tobacco use disorder QUIT 03/2018 (0.5 PPD x 5 years = 2.5 PY) Type 2 diabetes mellitus (~12/2018) Venous insufficiency of both lower extremities (01/23/15) Surgical History Ligation of fallopian tube Tonsillectomy Family History Mother , CAD at age 55. Diabetes Essential hypertension Father Essential hypertension Heart disease [place], Stents Myocardial infarction Brother Diabetes Essential hypertension Grandmother Diabetes Grandmother Diabetes Maternal Aunt Breast cancer Social History Smoking/Tobacco Use Status: Former Tobacco Use Quit Date: 03/26/18 Pack-years: 3 Tobacco: How many years used: 5 Second Hand Exposure: Yes Smoking risk assessment performed?: Yes Alcohol Intake: never Drug use: Never Substance use type: does not use Caregiver/Support person: No Household members: significant other, children and other Details: Lives with suzie Sheridan and daughter Number of Children: 3 Communication Needs: None Education Level: high school 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 [employer] Pets and animals: Yes Pets and animals: fish Sexually active: Yes Current gender identity: female What type of physical activity do you participate in: none Seatbelt use: sometimes Water heater temp set <120 deg: Yes Working smoke detector in home: Yes Fire extinguisher in home: Yes Carbon monox detector in home: Yes Firearms in home: No Do you feel safe at home: Yes Do you feel safe in your relationship?: Yes Exam Const General: cooperative, healthy appearing and no acute distress [facility] Head: normal to inspection Face and sinus: normal facial exam Eyes General: appearance normal, both eyes and all related structures EOM: EOM intact bilaterally Neck Neck: normal visual inspection and No submandibular swelling Lymphatic: no lymphadenopathy noted Chest Chest: normal inspection of the chest and no tenderness Resp Effort & Inspection: normal respiratory effort and able to speak in complete sentences Auscultation: clear to auscultation bilaterally Cardio Rate: regular rate Rhythm: regular rhythm GI Inspection: normal to inspection Palpation: soft, not firm, not rigid and tender in the LLQ and suprapubicly Auscultation: normal bowel sounds Skin General skin exam: no rashes or lesions noted Neuro General: patient alert, patient awake and patient oriented x3 Cognition: normal cognition Speech: speech normal Motor: muscle tone normal throughout Sensory Exam: no sensory deficits noted Extrem General: normal to inspection, full ROM, capillary refill normal, no calf tenderness bilaterally and no edema Psych Appearance: grossly normal Mental Status: mental status grossly normal Speech and Movement: speech and movement normal Affect: normal affect Course Vital Signs Vital signs: Vital Signs Temperature 98.1 F 08/04/20 11:59 Pulse 78 08/04/20 11:59 Respiratory Rate 20 08/04/20 11:59 Blood Pressure 165/74 H 08/04/20 11:59 Pulse Oximetry 99 08/04/20 11:59 Temperature 98.1 F 08/04/20 11:59 Temperature Source Skin 08/04/20 11:59 Pulse 78 08/04/20 11:59 Respiratory Rate 20 08/04/20 11:59 Respiratory Effort Non-Labored 08/04/20 12:22 Blood Pressure 165/74 H 08/04/20 11:59 Blood Pressure Position Sitting 08/04/20 11:59 Pulse Oximetry 99 08/04/20 11:59 Oxygen Delivery Method Room Air 08/04/20 11:59 Oxygen Flow Rate 0 08/04/20 11:59 Pain Level 9 08/04/20 11:59 Lab/Test Results Lab/Test Results: POC- Test(urine) Negative
--- NOTE | 2020-08-04 12:30 | DI.CT_ITS ---
EXAM: CT ABDOMEN PELVIS W CLINICAL HISTORY: LLQ abd pain,h/o diverticulitis,r/o diverticulitis TECHNIQUE: Imaging Protocol: Axial computed tomography images with coronal and sagittal reformatted images were created and reviewed CONTRAST MATERIAL: Intravenous: Omnipaque 350 Contrast volume:99 Oral: No COMPARISON: CT CT ABDOMEN PELVIS W from 06/15/2018 FINDINGS: ABDOMEN: Lung Bases: Normal where visualized. Liver: Normal density. No measurable mass. Portal, Superior Mesenteric, and Splenic Veins: Unremarkable. Gallbladder and Biliary Tract: No radiodense calculus or dilation. Pancreas: Normal density, no abnormal calcifications or inflammatory process. Spleen: Normal. Adrenals: No masses seen. Kidneys: Normal size, contour and axis. Bilateral nephrolithiasis no hydronephrosis. 1 cm simple rig ht renal cyst. No further workup is recommended. Abdominal Aorta: Abdominal portion non-dilated. 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 Bowel: No evidence of obstruction. No evidence of appendicitis. There are diverticula seen in the s igmoid colon. There is mild stranding seen adjacent to a short segment of the proximal sigmoid colon which may represent early diverticulitis. No abscess or free air. Peritoneal Cavity: No ascites, collection or mesenteric inflammatory response. No free air. Lymph Nodes: Within normal limits. Bones: Within normal limits for the patient's age. Soft Tissues: Unremarkable. PELVIS: Bladder: Symmetric distention, no gross wall thickening. Reproductive Organs: There is an IUD in good position. Lymph Nodes: Within normal limits. Bones: Within normal limits for the patient's age. IMPRESSION: Sigmoid diverticulosis. Mild increased attenuation in the fat surrounding the proximal sigmoid colon . This may represent an early diverticulitis. No abscess or free air. Results of this exam have been verbally communicated with provider. RADIATION DOSE DELIVERED: Total DLP DATA REPOSITORY: All CT scans at this facility are submitted to the National Radiology Data Registry (NRDR) Dose Index Registry (DIR) with the [employer] (ACR). RADIATION OPTIMIZATION: All CT scans at this facility use at least one of these dose optimization te chniques: automated exposure control; mA and/or kV adjustment per patient size (includes targeted exa ms where dose is matched to clinical indication); or iterative reconstruction.
[2020-08-04 12:33] LABS: Abs Immature Grans 0.05 10^3/uL (0.0-0.06); Absolute Eosinophil Count 0.28 10^3/uL (0.0-0.7); Absolute Lymphocyte Count 3.34 10^3/uL (1.2-3.4); Absolute Monocyte Count 0.82 10^3/uL (0.1-0.8); Basophils % 0.9; Eosinophils % 2.5; HCT 43.2 % (36.0-46.0); HGB 13.8 g/dL (11.2-15.7); Immature Grans % 0.4; Lymphocytes % 29.9; MCH 27.2 pg (27.0-33.0); MCHC 31.9 % (32.0-36.0); MPV 10.5 fL (8.0-11.0); Monocytes % 7.3; Nucleated RBC 0 %; Platelet Count 350 10^3/uL (130-400); RBC 5.08 10^6/uL (3.93-5.22); RDW 13.8 % (11.7-14.6); RDW-SD 42.9 fL; WBC 11.18 10^3/uL (4.4-10.8)
[2020-08-04 12:34] LABS: Bilirubin Negative (Negative); Blood Negative (Negative); Clarity Clear (Clear); Glucose Negative (Negative); Ketones Negative (Negative); Leukocyte Esterase Small (Negative); Nitrite Negative (Negative); Specific Gravity 1.015 (1.005-1.025); Urobilinogen 0.2 EU/dL (Up TO 0.2); pH 6.5 (5-8)
[2020-08-04 12:44] LABS: Bacteria Few HPF (Negative); Casts Negative LPF (Negative); Crystals Negative HPF (Negative); Epithelial Cells Moderate HPF (Negative); Mucus Negative (Negative); RBC Negative HPF (0-2)
[2020-08-04 12:45] LABS: C & S Indicated? No/Sq. Contamination
[2020-08-04 12:46] LABS: ALT 18 U/L (14-59); AST 11 U/L (15-37); Albumin 3.9 g/dL (3.4-5.0); Alkaline Phosphatase 66 U/L (46-116); Anion Gap 8.7 mmol/L (3-11); BUN 10 mg/dL (7-18); Bilirubin, Total 0.2 mg/dL (0.2-1.0); CO2 27.3 mmol/L (21.0-32.0); CREATININE 0.8 mg/dL (0.55-1.02); Calcium 9.1 mg/dL (8.5-10.1); Chloride 102 mmol/L (98-107); Glucose 121 mg/dL (74-106); Potassium 3.7 mmol/L (3.5-5.1); Sodium 138 mmol/L (136-145); Total Protein 8.7 g/dL (6.4-8.2)
[2020-08-04] MEDS: Ondansetron 4 MG/2 ML VIAL IVP (13:18)
[2020-08-04] MEDS: Normal Saline 1,000 ML 1000 ML IV (13:18)
[2020-08-04] MEDS: Ketorolac 30 MG/ML VIAL IVP (13:18)
[2020-08-04] MEDS: Omnipaque 350 MG/ML 100 ML BTL IJ (14:08)
[2020-08-04] MEDS: Amox. 875/Clav. 125, 2 TABS/BTL 1 TAB PO (15:40)
[2020-08-04] MEDS: Amoxicillin 875/Clav. 125 TAB PO (15:40)
[2020-08-04 15:41] VITALS: BP 155/91; PULSE 74; RESP 79; O2SAT 97
== END 2020-08-04 15:42 | disposition home or self-care (01) ==
PROVIDERS: Emergency Provider Physician Assistant; PCP Nurse Practitioner Family
DX: K57.32 Diverticulitis of large intestine without perforation or abscess without bleeding (principal)
CPT/HCPCS: 36415; 80053; 81025; 96361; 96374; 96375; 99285; 74177; 81003; 81015; 85025; J1885; J2405; J3490

== ENCOUNTER 2020-09-04 22:15 | Outpatient (REF) | payer OTHER, SELFPAY ==
[2020-09-04 19:39] LABS: COMMENT (LAB VIEW ONLY) 172.93 mg/dL; Microalb ug/mg Crea 15.1 ug/mg Cr
== END 2020-09-04 22:16 | disposition home or self-care (01) ==
LOC: LBN 22:15
PROVIDERS: PCP Nurse Practitioner Family; Referring Provider Nurse Practitioner Family; Visit Provider Nurse Practitioner Family
DX: E11.9 Type 2 diabetes mellitus without complications (principal)
CPT/HCPCS: 82043; 82570

== ENCOUNTER 2020-10-06 02:26 | Outpatient (CLI) | payer OTHER, SELFPAY ==
--- NOTE | 2020-10-06 12:42 | DI.US_ITS ---
APPROVED REPORT EXAM: Comprehensive 2D, Doppler, and color-flow Echocardiogram Patient Location: Out-Patient Hosiery Bagger: Randi Harris RDCS (AE) Indications: Mitral regurgitation, pulmonic stenosis Other Information Study Quality: Adequate Conclusion Normal left ventricular wall thickness and chamber size. estimated ejection fraction is 60%. Wall motion is normal Normal right ventricular size and systolic function Both atria are normal in size Trileaflet aortic valve with trace regurgitation Structurally normal mitral valve with mild regurgitation Structurally normal tricuspid valve, trace regurgitation, normal estimated right ventricular systolic pressure Structurally normal pulmonic valve, trace physiologic regurgitation. No pulmonic stenosis. Borderline dilated ascending aorta measuring 3.44 cm Wall motion Left Ventricle The left ventricle is normal size. The left ventricular systolic function is normal. The left ventric ular ejection fraction is within the normal range. There is normal left ventricular wall thickness. T here is normal LV segmental wall motion. There is no ventricular septal defect visualized. LVEF is 60 %. Right Ventricle The right ventricle is normal size. The right ventricular systolic function is normal. The RVSP is 28 .2mmHg. Atria The left atrium size is normal. The right atrium size is normal. The interatrial septum is intact wit h no evidence for an atrial septal defect. Aortic Valve The aortic valve is normal in structure. Aortic valve is trileaflet. There is no aortic valvular sten osis. Trace aortic regurgitation. Mitral Valve The mitral valve is normal in structure. No evidence of mitral valve stenosis. Mild mitral regurgitat ion. Tricuspid Valve The tricuspid valve is normal in structure. There is no tricuspid valve stenosis. Trace tricuspid reg urgitation. Pulmonic Valve The pulmonary valve is normal in structure. There is no pulmonic valvular stenosis. Trace pulmonic re gurgitation. Great Vessels The aortic root is normal in size. The ascending aorta is mildly dilated. 3.44 cm Aortic arch is norm al in caliber. IVC is normal in size and collapses >50% with inspiration. Pericardium There is no pericardial effusion. 2D Dimensions IVSD d PLAX 0.90 cm F: 0.6-1.0 LV Vol A2C d MOD 165.8 mL LVPW d PLAX 0.95 cm F: 0.6 - 1.0 LV Vol A4C d MOD 131.7 mL LVID d PLAX 4.79 cm F: 3.8 - 5.2 LA vol/ BSA A2C s A-L 32.7 mL/m2 LVDs 3.15 cm F: 2.2 - 3.5 LA vol/ BSA A4C s A-L 34.9 mL/m2 Ao Root d 2.48 cm F: 2.7 - 3.3 LA Vol/ BSA Biplane s A-L 33.9 mL/m2 RA Area A4C 14.72 cm2 LA Area A4C s MOD 20.44 cm2 RA Vol/ BSA A4C s A-L 21.3 mL/m2 LA Area A2C s MOD 19.84 cm2 Ao Asc Diam d 3.44 cm F: 2.3 - 3.1 LV EF A4C MOD 57.7 % LV EF Teichholz 62.1 % LV EF A2C MOD 60.7 % LVEF (Peres's) 58.26 % F: 54 - 74 LV EF Biplane MOD 58.3 % LV Volume 119.35 mL F: 46 - 106 SV 87.28 mL LV Volume Index 71.04 mL/m2 F: 29 - 61 SV Index 51.80 mL/m2 LV Vol Biplane MOD 149.8 mL FS 33.45 % M-Mode TAPSE 2.77 cm (M/F) >1.7 LV Diastology MV E' medial 0.156 (>0.07 m/s) E/A Ratio 1.1 LV E/e MED 6.60 (<14) MV E Vmax 1.04 (0.4-1.3 m/s) MV E' lateral 0.172 (>0.1 m/s) MV A Vmax 0.95 (0.4-1.3 m/s) LV E/e LAT 6.00 (<14) MV E/A Ratio 1.08 MV E/E' medial 6.64 MV E/E' lateral 6.03 Aortic Valve LVOT Area 2.87 cm2 AoV Area Vmax 2.28 cm2 LVOT Vmax 1.61 m/s AoV Area/ BSA (Vmax) 1.36 cm2/m2 LVOT Mean Tomi. 0.98 m/s KURT Mean Tomi. 2.03 cm2 LVOT Peak Grad 10.4 mmHg KURT Mean Tomi. Index 1.21 cm2/m2 LVOT Mean Grad 4.8 mmHg AR DT 1322 msec LVOT VTI 0.338 m AR PHT 383 msec LVOT Diam s 1.90 cm AoV Vmax 2.03 m/s Velocity Ratio 0.79 AoV Mean Tomi. 1.39 m/s AoV Peak Grad 16.5 mmHg LVOT SV 96.98 mL AoV Mean Grad 8.7 mmHg AoV VTI 0.382 m AoV Area VTI 2.54 cm2 AoV Area/ BSA (VTI) 1.50 cm/m2 Mitral Valve MV DT 247 (160-240 msec) MR Vmax 5.28 m/s MV PHT 72 msec MR VTI 1.919 m MV Area PHT 3.07 cm2 MR Peak Grad 111.5 mmHg MV VTI 0.415 m MR Mean Grad 77.3 mmHg MV VTI Annulus 0.417 m MV Area VTI 2.34 (4.0-6.0 cm2) Pulmonary Valve PV Vmax 2.61 (0.5-1.5 m/s) RVOT Peak Gr. 19.65 mmHg PV Peak Grad 27.2 mmHg RVOT Mean Gr. 8.80 mmHg PV Mean Grad 17.7 mmHg RVOT Diam s 2.21 cm (M/F) 2.1-3.5 PV VTI 0.692 m RVOT VTI 0.448 m PV SV 265.9 mL RVOT Vmax 2.22 m/s Tricuspid Valve TR Peak Grad 25.1 mmHg TR Vmax 2.51 m/s RA Pressure 3.00 mmHg RVSP (TR) 28.2 mmHg
== END 2020-10-06 02:46 ==
PROVIDERS: PCP Nurse Practitioner Family; Visit Provider Nurse Practitioner Family
DX: I34.0 Nonrheumatic mitral (valve) insufficiency (principal); I37.0 Nonrheumatic pulmonary valve stenosis
CPT/HCPCS: 93306

== ENCOUNTER 2020-10-07 02:59 | Outpatient (CLI) | payer OTHER, SELFPAY ==
[2020-10-07 11:08] LABS: Source Nasal/Nares
[2020-10-07 14:05] LABS: COVID-19 PCR Negative (Negative)
== END 2020-10-07 03:00 | disposition home or self-care (01) ==
LOC: LBO 02:59
PROVIDERS: PCP Nurse Practitioner Family; Referring Provider Surgery; Visit Provider Surgery
DX: Z20.822 Contact with and (suspected) exposure to COVID-19 (principal); Z01.818 Encounter for other preprocedural examination
CPT/HCPCS: 87635

== ENCOUNTER 2020-10-09 08:07 | Day surgery (SDC) | payer OTHER, SELFPAY ==
[2020-10-09 08:24] VITALS: BP 138/60; PULSE 75; RESP 16; TEMP 36.5; O2SAT 95
[2020-10-09] MEDS: Lactated Ringers 1,000 ML 80 ML IV (08:51)
--- NOTE | 2020-10-09 09:59 | W.PM.DSUDISC ---
Discharge Plan Disposition Patient Disposition: HOME Discharge Details Reason For Visit: colon scope Attending Provider: Saba Salvador Primary Care Provider: Alexa Penn Home Meds and New Rx's Prescriptions: No Action (DME) blood-glucose meter misc See Rx Instructions .ROUTE .MEDSUPPLY Qty: 1 RF: 0 (DME) Blood Glucose Test strip See Rx Instructions .ROUTE .MEDSUPPLY Qty: 100 RF: 3 (DME) lancets misc See Rx Instructions .ROUTE .MEDSUPPLY Qty: 100 RF: 3 Mirena 1 EACH intrauterine device 1 device intrauterine DIRECTED RF: 0 acetaminophen 500 mg Tablet 1,000 mg PO PRN PRNRF: 0 ibuprofen 400 mg Tablet 400 mg PO Q6H PRNRF: 0 Discharge Instructions Additional Instructions: Findings: minor diverticula no active infection Follow up: 2 wks Please call if you develop: fevers >101.5 Nausea or Vomiting Abdominal pain that is not transient DAY SURGERY UNIT POST COLONOSCOPY INSTRUCTIONS 1. Because there will be medication in your system for the next 24 hours, you may feel a little sleepy. Your coordination will be affected. Therefore: a. Do not drive or operate dangerous equipment for 24 hours. b. Do not drink alcohol beverages for 24 hours (not even beer). c. Plan to go home and rest for the day. 2. Generally there are no restrictions on your activity after a day or so has gone by, but you may feel a bit fatigued for a few days. 3 After you arrive home you may have a light meal and return to a normal diet as you can tolerate it without feeling sick to your stomach. 4. After surgery, you may feel pain or discomfort. This should be only transient, but if it persists please contact your doctor. 5. If there are any questions regarding the findings of your procedure, please feel free to contact your doctor. 6. If you are unable to contact your doctor with a problem, contact the hospital at [phone]. 7. Continue all your regular medications unless directed otherwise. I understand the above instructions and have no questions. Signature of Patient or Responsible Adult Escort Date/Time Name of Responsible Adult Escort Signature of Nurse Date/Time DIVERTICULAR DISEASE OVERVIEW ? A diverticulum is a pouch-like structure that can form through points of weakness in the muscular wall of the colon (ie, at points where blood vessels pass through the wall). Diverticulosis affects men and women equally. The risk of diverticular disease increases with age. It occurs throughout the world but is seen more commonly in developed countries. WHAT IS DIVERTICULAR DISEASE? Diverticulosis ? Diverticulosis merely describes the presence of diverticula. Diverticulosis is often found during a test done for other reasons, such as flexible sigmoidoscopy, colonoscopy, or barium enema. Most people with diverticulosis have no symptoms and will remain symptom free for the rest of their lives. A person with diverticulosis may have diverticulitis, or diverticular bleeding. Diverticulitis ? Inflammation of a diverticulum (diverticulitis) occurs when there is thinning and breakdown of the diverticular wall. This may be caused by increased pressure within the colon or by hardened particles of stool, which can become lodged within the diverticulum. The symptoms of diverticulitis depend upon the degree of inflammation present. The most common symptom is pain in the left lower abdomen. Other symptoms can include nausea and vomiting, constipation, diarrhea, and urinary symptoms such as pain or burning when urinating or the frequent need to urinate. Diverticulitis is divided into simple and complicated forms. ?Simple diverticulitis, which accounts for 75 percent of cases, is not associated with complications and typically responds to medical treatment without surgery. ?Complicated diverticulitis occurs in 25 percent of cases and usually requires surgery. Complications associated with diverticulitis can include the following: ?Abscess ? a localized collection of pus ?Fistula ? an abnormal tract between two areas that are not normally connected (eg, bowel and bladder) ?Obstruction ? a blockage of the colon ?Peritonitis ? infection involving the space around the abdominal organ ?Sepsis ? overwhelming body-wide infection that can lead to failure of multiple organs Diverticular bleeding ? Diverticular bleeding occurs when a small artery located within a diverticulum is eroded and bleeds into the colon. Diverticular bleeding usually causes painless bleeding from the rectum. In approximately 50 percent of cases, the person will see maroon or bright red blood with bowel movements. Is bleeding with a bowel movement normal? ? It is not normal to see blood in a bowel movement; this can be a sign of several conditions, most of which are not serious (eg, hemorrhoids) but some of which are serious and require immediate treatment. Anyone who sees blood after a bowel movement should consult with their healthcare provider to determine if further testing or evaluation is needed. DIVERTICULOSIS AND DIVERTICULITIS DIAGNOSIS ? Diverticulosis is often found during tests performed for other reasons. ?Barium enema ? This is an x-ray study that uses barium in an enema to view the outline of the lower intestinal tract. This is an older test and has been largely replaced by computed tomography (CT) scan. ?Flexible sigmoidoscopy ? This is an examination of the inside of the sigmoid colon with a thin, flexible tube that contains a camera. ?Colonoscopy ? This is an examination of the inside of the entire colon. ?CT scan ? A CT scan is often used to diagnose diverticulitis and its complications. If diverticulitis (not just diverticulosis) is suspected, the above three tests should not be used because of the risk of perforation. TREATMENT Diverticulosis ? People with diverticulosis who do not have symptoms do not require treatment. However, most clinicians recommend increasing fiber in the diet, which can help to bulk the stools and possibly prevent the development of new diverticula, diverticulitis, or diverticular bleeding. Fiber is not proven to prevent these conditions in all patients but may help to control recurrent episodes in some. Increase fiber ? Fruits and vegetables are a good source of fiber. Fiber content of packaged foods can be calculated by reading the nutrition label. Seeds and nuts ? Patients with diverticular disease have historically been advised to avoid whole pieces of fiber (such as seeds, corn, and nuts) because of concern that these foods could cause an episode of diverticulitis. However, this belief is completely unproven. We do not suggest that patients with diverticulosis avoid seeds, corn, or nuts. Diverticulitis ? Treatment of diverticulitis depends upon how severe your symptoms are. Home treatment ? If you have mild symptoms of diverticulitis (mild abdominal pain, usually left lower abdomen), you can be treated at home with a clear liquid diet and oral antibiotics. However, if you develop one or more of the following signs or symptoms, you should seek immediate medical attention: ?Temperature >100.1?F (38?C) ?Worsening or severe abdominal pain ?An inability to tolerate fluids Hospital treatment ? If you have moderate to severe symptoms, you may be hospitalized for treatment. During this time, you are not allowed to eat or drink; antibiotics and fluids are given into a vein. If you develop an abscess of the colon, you may require drainage of the abscess (usually performed by placing a drainage tube across the abdominal wall) or by surgically opening the affected area. Surgery ? If you develop a generalized infection in the abdomen (peritonitis), you will usually require an emergency operation. A two-part operation may be necessary in some cases. ?The first operation involves removal of the diseased colon and creation of a colostomy. A colostomy is an opening between the colon and the skin, where a bag is attached to collect waste from the intestine. The lower end of the colon is temporarily sewed closed to allow it to heal. ?Approximately three to six months later, a second operation is performed to reconnect the two parts of the colon and close the opening in the skin. You are then able to empty your bowels through the rectum. Sometimes patients require up to a year to recover from the first operation, depending on how sick they were. In non-emergency situations, the diseased area of the colon can be removed and the two ends of the colon can be reconnected in one operation, without the need for a colostomy. Surgery versus medical therapy ? An operation to remove the diseased area of the colon may be necessary if you do not improve with medical therapy. After an episode of uncomplicated diverticulitis, elective surgery is generally not required as the risk of another attack or requiring emergency surgery is low. However, patients with persistent symptoms attributable to diverticulitis, a history of complicated diverticulitis, or a compromised immune system should be evaluated for possible surgery to prevent another attack. In such patients, another attack has been associated with a higher risk of complications or . Of course, the decision will also depend in part upon your other medical conditions and ability to undergo surgery. In many cases, an elective operation can be performed laparoscopically, using small incisions, rather than the typical vertical (up and down) abdominal incision. Laparoscopic surgery usually allows you to recover more quickly and shortens the hospital stay. After diverticulitis resolves ? After an episode of diverticulitis resolves, if you have not had a recent colonoscopy, the entire length of the colon should be evaluated to determine the extent of disease and to rule out the presence of abnormal lesions such as polyps or cancer. Recommended tests include colonoscopy, barium enema and sigmoidoscopy, or CT colonography. Diverticular bleeding ? Most cases of diverticular bleeding resolve on their own. However, some people will need further testing or treatment to stop bleeding, which may include a colonoscopy, angiography (a treatment that blocks off the bleeding artery), bleeding scan, or surgery. DIVERTICULAR DISEASE PROGNOSIS Diverticulosis ? Over time, diverticulosis may cause no problems or it may cause episodes of bleeding and/or diverticulitis. Approximately 15 to 25 percent of people with diverticulosis will develop diverticulitis, while 5 to 15 percent will develop diverticular bleeding. Diverticulitis ? Approximately 85 percent of people with uncomplicated diverticulitis will respond to medical treatment, while approximately 15 percent of patients will need an operation. After successful treatment for a first attack of diverticulitis, one-third of patients will remain asymptomatic, one-third will have episodic cramps without diverticulitis, and one-third will go on to have a second attack of diverticulitis. The prognosis tends to remain similar following a second attack of diverticulitis. Only 10 percent of people remain symptom-free after a second attack. Subsequent attacks tend to be of similar severity, not increasing in severity as previously believed. High Fiber Diet What is Dietary Fiber? All fiber comes from plants, bushes, tory or trees. Of course, the ones that we eat provide us with fruits, vegetables and grains. There are many different types of fiber but the three that are most important to the health of the body are: Insoluble Fiber This fiber does not dissolve in water, nor is it fermented by the bacteria residing in the colon. Rather, it retains water and in so doing, helps to promote a larger, bulkier and more regular bowel activity. This, in turn, may be important in preventing disorder such as diverticulosis and hemorrhoids, and in sweeping out certain toxins and cancer causing carcinogens. Sources of insoluble fiber are: ? whole grain wheat and other whole grains ? corn bran, including popcorn, unflavored and unsweetened ? nuts and seeds ? potatoes and the skins from most fruits from trees such as apples, bananas and avocados ? many green vegetables such as green beans, zucchini, celery and cauliflower ? some fruit plants such as tomatoes and kiwi Soluble Fiber These fibers are fermented or used by the colon bacteria as a food source or nourishment. When these good bacteria grow and thrive, many health benefits occur in both the colon and the body. Soluble fiber is present in some degree in most edible plant foods, but the ones with the most soluble fiber include: ? legumes such as peas and most beans, including soybeans ? oats, rye and barley ? many fruits such as berries, plums, apples bananas and pears ? certain vegetables such as broccoli and carrots ? most root vegetables ? psyllium husk supplement products Prebiotic Soluble Fiber These are relatively newly discovered soluble plant fibers. The technical name for this fiber is inulin or fructan. When these soluble fibers are fermented by the good colon bacteria, some further significant health benefits have been shown to occur by research in many medical centers. These soluble prebiotic fibers occur in significant amounts in: ? asparagus ? yams ? onions ? garlic ? bananas ? leeks ? agave ? chicory and other root vegetables such as [place] artichokes ? wheat, rye and barley (smaller amounts) Benefits of a High Fiber Diet The health benefits of a high fiber diet, consumed on a regular basis and reaching recommended amounts (below), are now fairly well-defined. There are some additional benefits in the early research stage with the prebiotic soluble fibers. What is now known regarding a high fiber diet include: Bowel Regularity A high fiber diet promotes regularity with a softer, bulkier and regular stool pattern. This decreases the chance of hemorrhoids, diverticulosis and perhaps colon cancer. Cholesterol and Reduced Triglycerides The soluble fibers are the ones that will reduce cholesterol levels when used on a regular basis. Psyllium husk and prebiotic soluble fiber will also reduce cholesterol. They may also reduce the incidence of coronary heart disease. Oats, flax seeds and legumes or beans are the recommended fibers. Colon Polyps and Cancer It is still not certain if a high fiber diet helps prevent colon cancer. Considerable research suggests that this may occur. Certainly it makes sense to increase regularity and so speed the movement of cancer causing carcinogens through the bowel. In addition, reducing a heavy meat diet reduces the bile flow from the liver in a favorable way. This, too, reduces the amount of carcinogens that reach and are manufactured in the colon. Finally, a high fiber diet, including prebiotic soluble fiber, increases the integrity and health of the wall of the colon. The risk of cancer may be reduced. Colon Wall Integrity A high fiber diet changes the bacterial makeup of the colon toward a more favorable balance. For instance, it is known that those people with obesity, diabetes type 2 and inflammatory bowel disease have a predominance of bad bacteria in the colon. This, in turn, may render the bowel wall weak and allow bacteria and, indeed, even toxins to seep through. A high fiber diet with a modest reduction in animal and meat products may return the bacterial makeup to a more positive balance. This, in particular, has been seen when the soluble fiber prebiotics are added to the diet. Blood Sugar Soluble fiber such as in legumes (beans), oats and in prebiotic fibers slows the absorption of blood sugar and so helps regulate the sugar in the blood. Insoluble fiber on a regular basis is associated with reduced risk of type 2 diabetes. Weight Loss High fiber diets are more filling and give a sense of fullness sooner than an animal and meat based diet does. In addition, the soluble prebiotic fibers have been shown to turn off the hunger hormones produced in the wall of the gut and to increase the hormones that give a sense of fullness. Those hormones are made in the wall of the gut. New medical research has shown that the bacterial makeup in the colon in overweight people is abnormal to the extent that they manufacture and absorb almost twice the number of calories through the colon wall as do normals. Prebiotic fibers (below) will help change this hormonal balancein a favorable way. Bacteria and the Function of the Colon The colon finishes the digestive process. Hopefully, the waste products move through in a nice regular manner. Insoluble fibers help this process by retaining water and so producing a bulkier, softer stool, which is easy to pass. The additional role of the colon is to provide a home for an enormous number of micro-organisms, mostly bacteria. Recent research has shown that there are over 1,000 species of bacteria with a total bacterial count ten times the number of cells in the body. These bacteria play a major role in keeping the colon wall itself healthy. In addition, these good bacteria produce a very strong immune system for the body. They significantly increase calcium absorption and bone density. They provide other documented benefits. It is the soluble fibers in the diet that are so effective in stimulating the growth of good colon bacteria. How Much is Enough? The amount of fiber in food is measured in grams. National nutritional authorities recommend the following amounts of dietary fiber daily. Under Age 50 Over Age 50 Men 38 grams 30 grams Women 25 grams 21 grams For a week or so, it is best to tally the amount of fiber you are consuming. Boxed and packaged foods will have the amount of fiber per serving on the nutrition label. Which Fibers and Which Foods are Best? As noted, healthy fiber is only found in plants. The three major categories are whole grains, fruits and vegetables. Whole Grains Wheat, oats, barley, wild or brown rice, amaranth, buckwheat, bulgur, corn, millet, quinoa, rye, sorghum, teff and triticals. By far, wheat, oats and wild or brown rice are most common. Always buy whole grain products. White bread, baked goods and rolls almost always are made from wheat flour. Wheat flour is white because most of the fiber, vitamins and other nutrients have been removed. Try not buy enriched grains. What this means is that simple white flour has had vitamins added to it by the crochet machine operator. The word, enriched, implies a good and healthy product. On the contrary, enriched means that most of the fiber has been removed and a few vitamins added. Fruits Fruits come from trees such as apple and pear or from bushes or tory. You should eat a wide variety of fruits, preferably with every meal. In many cases, the skin of a fruit such as apple will contain much of the insoluble fiber while the pulp contains most of the soluble fiber. To the extent possible, buy organic fruits as these will have little or no pesticides. Always wash fruit. Vegetables Eat a wide variety of vegetables. They should be a mainstay of lunch and dinners. Frozen vegetables retain as much nutrition and fiber as fresh vegetables. As with fruit, try to buy organic to reduce any residual pesticide ingestion. Wash fresh vegetables thoroughly. Cruciferous vegetables such as broccoli, [place] sprouts and cauliflower contain certain chemicals such as sulforaphane. This substance has very strong anti-cancer properties and should be eaten frequently. Legumes, Beans, Peas and Soybeans These vegetables have plenty of soluble fiber and should be part of a varied vegetable intake. Beans, in particular, contain a certain type of fiber that may lead to harmless gas or bloating. Nuts and Seeds These are rich sources of fiber and are a good substitute for sweets such as candies and baked sweet goods. While nuts and seeds are rich in fiber, they also contain vegetable fat and so can and do add calories. Read the Labels As noted, fresh and frozen foods are usually better. They have good nutrition and few, if any, chemicals added to them. When buying packaged foods and, in particular grains, look for three things: ? The first word on the label should be whole, such as whole wheat or whole grain. ? Check out the calories and the amount of fiber in a serving. ? How many and what other additives or chemicals are added. Fewer is always better. Do you know what each additive does? Some are added not for the benefit of the sugar mill worker but rather for manufacturers. These could and do include sugar, artificial flavor, chemicals to prevent oxidation and spoilage, emulsifiers to blend the product. You have to be a tripe cooker. Fiber Facts, Nuggets and Pearls ? For breakfast you can easily get the day started well by using a high fiber, whole grain cereal. Check the labels. Add fruit such as blueberries and bananas. If you are an egg eater, use whole wheat or grain toast. Adding wheat germ gives you a good fiber kick. ? Always use whole grain or wheat with rolls and sandwiches. Does your fast food store not have them? Perhaps you look elsewhere. Eating an occasional black bell or veggie burger provides variety. ? Snacks should consist of fruit and/or nuts. While nuts are loaded with fiber, they are an energy rich food, meaning they have a lot of calories in a small packet. ? Fruit juices should contain pulp. Clear juices such as clear orange, pear or apple juice contain little fiber and have a lot of fructose. Prune juice is usually high in fiber. ? Homemade soups ? adding fresh or frozen vegetables to a chicken or vegetable stock is a good way to start homemade soup. ? Salads ? adding cooked and then chilled vegetables provide great flavoring to almost any salad. Remember, a mcelroy salad has lots of cooked corn in it. Small slices of apples or oranges and nuts such as chopped walnuts or sliced almonds always adds taste, variety and fiber to almost any salad. ? Fruit ? Try to eat fruit of some type with almost every meal. ? Rethink how you place the various foods on your dinner plate. Reducing the portions of the meat or animal food portion to the side with equal or more portions of vegetables, legumes and fruits portion always allows for more fiber. There was never anything magic about making the meat or animal food portion the main part of the dinner plate. Eating from smaller plates can, over time, trick your mind and skilled nursing habit of using a dinner plate. Again, there is nothing magic in an 11, 12, or 13 inch dinner plate. Fiber Supplements There are a variety of fiber supplements available on the food or pharmacy shelves. Psyllium This soluble plant fiber has been used in [place] for over 2,000 years. It is a soluble fiber with mucilage in it. This acts to retain a lot of water and also is fermented by colon bacteria. When 7 grams a day are used, it does lower cholesterol. Metamucil in various forms is psyllium. Methyl Cellulose All the cellulose products come from finely ground wood chips which are then treated in a variety of ways such as boiling in acids. Methyl cellulose is an insoluble fiber which does dissolve in water. It is also an emulsifier, meaning it blends oils and water. Citrucel is methyl cellulose (MC). MC may not be appropriate for Crohn?s disease or ulcerative colitis as several medical studies have shown that certain emulsifiers dissolve the mucous lining of the colon in animals prone to Crohn?s disease. This then allows bacteria to invade the underlying tissue. Inulin Inulin is a soluble prebiotic fiber found in many foods and which are fermented mostly in the left side of the colon. It is available in a supplement as generic inulin and in Fiber Choice. Oligofructose FOS These are also prebiotic fibers. They are fermented very quickly in the right side of the colon. Prebiotin This product is a combination of oligofructose, which feeds the bacteria in the right side of the colon and inulin, which does the same in the left side of the colon. There seems to be a benefit for this particular formula based on medical research. Prebiotic Soluble Fiber These may be the healthiest of all the soluble fibers. They grow in many plants and have had a great deal of research done on them in the last 10-15 years. These fibers are found in asparagus, yams and other root vegetables such as chicory, garlic, onion, leeks and in smaller amounts in wheat. This research has shown the following: ? Increase in good and decrease in bad colon bacteria ? Increase calcium absorption and enhanced bone mass ? Enhanced immune system ? Appetite and weight control by changing the hormone appetite signals to the brain ? May decrease colon cancer incidence ? Reduce or correct a leaky colon Eating a wide variety of plant food up to the recommended amount will likely give you enough prebiotic fiber. Supplements such as Prebiotin can be added to the diet. Short Chain Fatty Acids (SCFA) Some rather remarkable research findings have shown that one of the benefits of ingesting a lot of soluble fiber, in particular the prebiotic ones, results in larger amounts of SCFAs in the colon. These SCFAs are made by the good bacteria in the colon such as Bifidobacter and Lactobacillus. These small molecules have been shown to do the following: ? Enhance the health and integrity of the colon wall ? Provide nourishment for the cells that actually line the colon ? Increases the acidity of the colon which is a very real health benefit ? Stabilize blood sugar for diabetics ? Reduce blood cholesterol and triglyceride ? Significantly enhance immunity ? May be a benefit for Crohn?s disease and ulcerative colitis patients Fiber and Gas Everyone has intestinal gas and that is a good thing. It means that bacteria, hopefully the good ones, are thriving. The normal amount of flatus passed each day depends on sex and what is eaten. The normal number of flatus is 10-20 times a day. When the bacteria that make intestinal gases are growing, it also means that other good bacteria are using the same fibers to grow and produce multiple health benefits, including the production of healthy short-chain fatty acids. These substances are produced quietly in the colon and produce many health-related outcomes. Soluble fiber should always be used in a gradual manner. If too much is consumed at any one time, then excess, but harmless, intestinal gas can occur. People with irritable bowel syndrome are particularly prone to bloating and mild cramping. In this instance, soluble fiber in the diet or supplement should be used in small doses and increased gradually. Finally, prebiotic fibers tend to cause the production of short-chain fatty acids which acidify the colon. This, in turn, reduces or stops the growth of bacteria that make the smelly hydrogen sulfide gases that produce noxious flatus. People who consume many vegetables with prebiotics or take a prebiotic fiber supplement often have non-odoriferous flatus. Fiber and Irritable Bowel Syndrome Irritable bowel syndrome (IBS) is one of the most common disorders of the lower digestive tract. The symptoms of IBS can be quite varied. They can be a mix of several symptoms such as constipation, diarrhea, crampy abdominal discomfort, bloating and gas. An attack of IBS can be triggered by emotional tension and anxiety, poor dietary habits and certain medications. It is now known that infections in the intestine can lead to long-term IBS symptoms. Increased amounts of fiber in the diet can help relieve the symptoms of irritable bowel syndrome by producing soft, bulky stools. This helps to normalize the time it takes for the stool to pass through the colon. Recent medical research with newer techniques has shown some surprising and dramatic findings for IBS patients. Specifically, there is a very significant and abnormal shift of bacteria from those that provide health benefits to those bad bacteria that we really do not want in the gut. The technical name for this bad group of bacteria is called Firmicutes. Along with this abnormal bacterial collection, there is a smoldering low-grade inflammation in the gut wall that may contribute to symptoms. The goal for IBS patients should be to gradually increase the soluble dietary fibers in the diet so as to promote the growth of good bacteria and so suppress the bad ones along with the associated inflammation. IBS patients need to be careful of the amount of soluble fiber they consume. The reason for this is that, while the good colon bacteria thrive on these fibers and produce health benefits, other gas-forming bacteria may generate excessive but harmless gas and subsequent bloating. Thus, soluble plant fibers or a dietary prebiotic supplement should be taken in small initial doses and then gradually increased to tolerance. Fiber and Colon Polyps/Cancer Colon cancer is a major health problem. This disease is most common in Western cultures. It is not seen very often in rural cultures where the diet is mostly plant based. Usually, colon cancer starts out as a colon polyp, a benign mushroom-shaped growth. In time it grows, and in some people it becomes cancerous. Colon cancer is usually always curable if polyps are removed when found or if surgery is performed at an early stage. It is now known that people can inherit the risk of developing colon cancer, but diet is important, too. As noted, there is a very low rate of colon cancer in residents of countries where grains are unprocessed and retain their fiber. It seems that in the [place] world, cancer-containing agents (carcinogens) remain in contact with the colon wall for a longer time and in higher concentrations. So, a large bulky stool may act to dilute these carcinogens by moving them through the bowel more quickly. Less carcinogenic exposure to the colon may mean fewer colon polyps and less cancer. A very current review of the entire world?s literature on the effect of fiber on colon polyps and cancer prevention has shown rather clearly that for every 10 grams of fiber added to the diet, there is a 10% reduction in incidence of colon cancer. So the recommended 30 gram fiber diet would result in a 30% less chance of getting these tumors. There are also substances produced in the colon by the good bacteria that seem to retard certain pre-cancer factors from developing. They are called short-chain fatty acids (SCFA). See above for description of SCFAs. A high fiber diet increases these substances. So, the combination of dietary fiber and the production of short-chain fatty acids have a clear health benefit. Fiber and Diverticulosis Prolonged, vigorous contraction of the colon over a long period of time may result in diverticulosis. This increased pressure causes small and, eventually, larger ballooning pockets to form. These pockets by themselves cause no problem. However, sometimes they become infected (diverticulitis) or even break open (perforate) causing infection or inflammation within the abdomen (peritonitis). A high fiber diet increases the bulk in the stool and thereby reduces the pressure within the colon. By so doing, the formation of pockets may be reduced or possibly even stopped. In the past, many physicians were fearful that seeds as in tomatoes, nuts or berries were harmful and could get inside these pockets and rattle around, causing damage. We now know that this has never been the case and that these foods contain lots of fiber and are actually beneficial for diverticulosis patients. Certain bulking agents such as psyllium are traditional types of bulk producing supplements. Psyllium is a soluble fiber. Combining it with insoluble fiber as in wheat bran or corn bran (no gluten) can enhance this bulking effect even more. A product containing a prebiotic, psyllium and wheat bran is probably a very good combination for bowel regularity. Prebiotin Regularity/Diverticulosis is one such product. Activity:: no lifting over 20#'s or strenuous activity x 24 hrs Diet:: small light meals x 24 hrs DS: Diagnosis Discharge Diagnosis (1) Diverticula of colon: Status: Acute (2) Type 2 diabetes mellitus: Status: Chronic (3) Obesity: Status: Chronic (4) Mitral valve regurgitation: Status: Chronic (5) JOSSY (obstructive sleep apnea): Status: Chronic
--- NOTE | 2020-10-09 10:03 | W.COLOREPORT ---
Date of service: 10/09/20 Time of Service: 10:03 Colonoscopy Report Date of procedure: 10/09/20 Pre-op diagnosis general: diverticula Surgeon: Saba Salvador Anesthesia Type: General:No Airway Estimated blood loss (mL): 0 Pathology: none sent Complications: None Disposition: same day Prep: Miralax/Dulcolax Retraction Time: 9 Procedure Description: After informed consent was obtained the patient was taken to the procedure room and placed in a left decubitous position. Monitors were applied and a time out was done. The patients name, date of , procedure, allergies to medications and metal in their body was reviewed. The patient was then sedated. Once sedated and comfortable a rectal exam was done. External emorrhoids. Internal exam revealed a normal sphincter tone and no palpable masses. The scope was then introduced and retrofelexed. No internal hemorrhoids were identified. The scope was then advanced to the cecum w/out difficulty. The TI and appendiceal orifice were identified. The prep was good. She has minor diverticular disease confined to the sigmoid colon. There are very small pouches and very few of them. There is no signs of any active disease. There are no polyps. the scope was then slowly retracted over 9 minutes back into the rectum. . The scope was removed and the patient was woken up and taken back to Same day surgery in stable condition. The patient tolerated the procedure well and there were no immediate complications. Follow up: The patient should follow up in 10 years unless they develop changes in bowel habits or other new gastrointestinal complaints.
[2020-10-09 10:35] VITALS: BP 128/70; PULSE 59; RESP 16; TEMP 37; O2SAT 100
== END 2020-10-09 11:12 | disposition home or self-care (01) ==
PROVIDERS: PCP Nurse Practitioner Family; Referring Provider Surgery; Visit Provider Surgery
PROC: 0DJD8ZZ Inspection of Lower Intestinal Tract, Via Natural or Artificial Opening Endoscopic (ICD-10-PCS; CPT 45378; principal; 2020-10-09 09:00)
DX: K57.30 Diverticulosis of large intestine without perforation or abscess without bleeding (principal); Z87.19 Personal history of other diseases of the digestive system; G47.33 Obstructive sleep apnea (adult) (pediatric); E11.9 Type 2 diabetes mellitus without complications; I37.0 Nonrheumatic pulmonary valve stenosis
CPT/HCPCS: 45378; 81025; J2001

== ENCOUNTER 2021-05-13 01:49 | Outpatient (CLI) | payer OTHER, SELFPAY ==
[2021-05-13 10:40] VITALS: BP 128/75; PULSE 75; RESP 16; TEMP 38.2; O2SAT 98
[2021-05-13] MEDS: Normal Saline 500 ML 30 ML IV (11:10)
[2021-05-13 11:25] VITALS: BP 127/86; PULSE 73; RESP 16; TEMP 38.3; O2SAT 98
[2021-05-13] MEDS: Normal Saline Flush 10 ML SYR IVP (11:49)
== END 2021-05-13 01:50 | disposition home or self-care (01) ==
LOC: INF 01:49
PROVIDERS: PCP Nurse Practitioner Family; Visit Provider Family Medicine
DX: U07.1 COVID-19 (principal)
CPT/HCPCS: 96365

== ENCOUNTER 2021-09-17 14:40 | Outpatient (REF) | payer OTHER, SELFPAY ==
--- NOTE | 2021-09-17 14:00 | PAPFT_PTH ---
PATIENT: Kathie Fox LOC: [facility] U#:[id number] AGE/SX: 41/F ROOM: RE09/17/[address]: KO Gunn : 1980 BED: DIS: 09/17/2021 SPEC #: [id number] RECD: 09/17/21 17:48 STATUS: LUZ REDelmar #: [id number] DONN: 09/17/21 14:[address]: Mercedes Crews DEPT: [facility] Cytology RECD BY: Joaquina Encarnacion ENTERED: 09/17/21 17:49 SP TYPE: PAPFT NINO DR: Alexa Penn, KADI Tissues: 1 - CX/ENDOCX FOR PAP SMEARS Procedures: PAP THIN PREP/[facility] Screening HPV DNA PROBE Comments: [id number]
== END 2021-09-17 14:41 | disposition home or self-care (01) ==
LOC: LBN 14:40
PROVIDERS: PCP Nurse Practitioner Family; Visit Provider Nurse Practitioner Family
DX: Z12.4 Encounter for screening for malignant neoplasm of cervix (principal); Z11.51 Encounter for screening for human papillomavirus (HPV)
CPT/HCPCS: 88142; 87624

== ENCOUNTER → 2021-09-29 01:40 | Outpatient (CLI) | payer OTHER, SELFPAY | PROVIDERS: PCP Nurse Practitioner Family; Visit Provider Nurse Practitioner Family ==

== ENCOUNTER 2021-10-21 02:58 | Outpatient (CLI) | payer OTHER, SELFPAY ==
[2021-10-21 08:56] LABS: COMMENT (LAB VIEW ONLY) 54.89 mg/dL; Microalb ug/mg Crea 17.3 ug/mg Cr
[2021-10-21 08:59] LABS: ALT 27 U/L (14-59); AST 12 U/L (15-37); Albumin 3.8 g/dL (3.4-5.0); Alkaline Phosphatase 80 U/L (46-116); Anion Gap 6.8 mmol/L (3-11); BUN 16 mg/dL (7-18); Bilirubin, Total 0.3 mg/dL (0.2-1.0); CO2 27.2 mmol/L (21.0-32.0); CREATININE 0.7 mg/dL (0.55-1.02); Calcium 8.5 mg/dL (8.5-10.1); Calculated LDL 77 mg/dL (<100); Chloride 103 mmol/L (98-107); Cholesterol 139 mg/dL (<200); Glucose 130 mg/dL (74-106); HDL Cholesterol 39 mg/dL (40-60); Potassium 4.4 mmol/L (3.5-5.1); Sodium 137 mmol/L (136-145); Total Protein 7.5 g/dL (6.4-8.2); Triglyceride 115 mg/dL (<150)
== END 2021-10-21 02:59 | disposition home or self-care (01) ==
LOC: LBO 02:59
PROVIDERS: PCP Nurse Practitioner Family; Visit Provider Nurse Practitioner Family
DX: E11.9 Type 2 diabetes mellitus without complications (principal)
CPT/HCPCS: 36415; 80053; 80061; 82043; 82570

== ENCOUNTER → 2021-11-01 00:46 | Outpatient (CLI) | payer OTHER, SELFPAY ==
--- NOTE | 2021-11-01 08:15 | DI.MAMMO_ITS ---
Exam(s) MAMMO SCREENING EXAM: MAMMO SCREENING CLINICAL HISTORY: screening,Z12.39 TECHNIQUE: Mammograms were interpreted according to the usual protocol including computer analysis w [employer] CAD system, tomosynthesis and C-view imaging. COMPARISON: No exams were available for comparison FINDINGS: The breasts are composed of scattered fibroglandular densities, Breast Density category B. No suspicious masses or suspicious microcalcifications are seen. No skin thickening or abnormal axillary lymph nodes are seen. IMPRESSION: BI-RADS Category 1, Negative mammogram Yearly screening mammography is recommended. Breast Density - Category B, scattered fibroglandular densities. A negative radiographic report should not delay biopsy if a dominant or clinically suspicious mass is present. Up to ten percent of cancers are not identified on mammography. A negative report may reinforce clinical impression. Adenosis and dense breasts may obscure an underlying neoplasm. False positive reports average 6 to 10%. Patient will receive a letter notifying them of these results.
== END ==
PROVIDERS: PCP Nurse Practitioner Family; Visit Provider Nurse Practitioner Family
DX: Z12.31 Encounter for screening mammogram for malignant neoplasm of breast (principal)
CPT/HCPCS: 77063; 77067

== ENCOUNTER 2022-01-10 20:13 | Emergency (ER) | payer OTHER, SELFPAY ==
[2022-01-10 20:28] VITALS: PULSE 89; RESP 16; TEMP 36.7; O2SAT 99
[2022-01-10 20:45] LABS: Bilirubin Negative (Negative); Blood Moderate (Negative); Clarity Clear (Clear); Glucose Negative (Negative); Ketones Negative (Negative); Leukocyte Esterase Negative (Negative); Nitrite Negative (Negative); Specific Gravity >= 1.030 (1.005-1.025); Urobilinogen 0.2 EU/dL (Up TO 0.2); pH 5.5 (5-8)
--- NOTE | 2022-01-10 20:45 | DI.CT_ITS ---
Exam(s) CT ABDOMEN PELVIS WO EXAM: CT ABDOMEN PELVIS WO CLINICAL HISTORY: right flank pain, concern for kidney stone. TECHNIQUE: Imaging Protocol: Axial computed tomography images with coronal and sagittal reformatted images were created and reviewed CONTRAST MATERIAL: Intravenous: none Oral: None COMPARISON: CT CT ABDOMEN PELVIS W from 08/04/2020 FINDINGS: VISUALIZED LUNG BASES: No pleural effusions. ABDOMEN: There is no ascites. LIVER: There are no obvious focal hepatic lesions evident of this noninfused study. GALLBLADDER/BILIARY: No obvious gallbladder pathology. CBD is not dilated. PANCREAS: No evidence of pancreatic mass nor dilatation of the pancreatic duct. SPLEEN: Spleen is not enlarged. No obvious intrasplenic lesions. ADRENALS: There are no significant adrenal masses. KIDNEYS:The punctate calculi seen in the lower pole calices of the right kidney and there are multipl e calculi seen in both upper and lower poles of the left kidney. No hydronephrosis nor hydroureter. No cyst or solid masses in the liver. No calculi in the nondistended urinary bladder.. ABDOMINAL AORTA: Abdominal aorta is not enlarged. 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 Left IVC drains into the left renal vein just before crosses the midline to drain into the right side IVC. The common iliac veins do not juan n behind the aorta but instead each drain independently into their own IVC which is on each side of t he abdominal aorta. LYMPH NODES: There is no retroperitoneal nor paraaortic adenopathy. ABDOMINAL WALL: No evidence of significant anterior abdominal wall nor inguinal hernia. GI: There is no evidence of bowel obstruction, free air, nor abscess. PELVIS: LYMPH NODES: There is no intrapelvic nor inguinal adenopathy. GI: No evidence of appendicitis.No evidence of sigmoid diverticulitis. URINARY BLADDER: No calculi nor obvious masses evident REPRODUCTIVE: There is an IUD in the uterus again noted. No abnormal adnexal masses. No free fluid. OSSEOUS: No significant osseous lesions. IMPRESSION: 1. Bilateral nonobstructive nephrolithiasis. No hydronephrosis. 2. IUD in the uterus again noted. No abnormal adnexal findings 3. Developmental double IVC, as described above. RADIATION DOSE DELIVERED: 1,351.4mGy.cm Total DLP DATA REPOSITORY: All CT scans at this facility are submitted to the National Radiology Data Registry (NRDR) Dose Index Registry (DIR) with the [employer] ([employer]). RADIATION OPTIMIZATION: All CT scans at this facility use at least one of these dose optimization te chniques: automated exposure control; mA and/or kV adjustment per patient size (includes targeted exa ms where dose is matched to clinical indication); or iterative reconstruction.
[2022-01-10 20:52] LABS: Bacteria Rare HPF (Negative); C & S Indicated? No/Sq. Contamination; Crystals Few Amorphous HPF (Negative); Epithelial Cells Moderate HPF (Negative); Mucus Moderate (Negative); Other Cells Few Renal (Negative)
[2022-01-10] MEDS: Ketorolac 15 MG/ML VIAL IM (21:00)
--- NOTE | 2022-01-10 21:07 | ED.GENADUL_ITS ---
Discharge Plan Disposition Patient Disposition: HOME Condition: Improving Discharge Details Chief Complaint: FlankPain Clinical Impression: Acute flank pain Primary Care Provider: Alexa Penn ED Provider: Bo Pizano Home Meds and New Rx's Prescriptions: No Action (DME) Blood Glucose Test strip See Rx Instructions .ROUTE .MEDSUPPLY Qty: 100 3RF Rx Instructions: As directed to check daily blood glucose. No insulin. Dispense covered brand. Dx: E11.9 to maintain HbA1c less than 7%. (DME) lancets misc See Rx Instructions .ROUTE .MEDSUPPLY Qty: 100 3RF Rx Instructions: As directed to check daily blood glucose. No insulin. Dispense covered brand. Dx: E11.9 to maintain HbA1c less than 7%. hydroxyzine HCl 25 mg tablet 25 - 50 mg PO QID PRN (Reason: anxiety) Qty: 60 0RF prochlorperazine maleate 5 mg tablet See Rx Instructions PO TID PRN (Reason: nausea and vomiting) Qty: 60 3RF Rx Instructions: 5-10 mg orally three times a day PRN; sertraline 50 mg tablet 50 mg PO DAILY Qty: 90 3RF Victoza 3-Chas 0.6 mg/0.1 mL (18 mg/3 mL) pen injector 1.2 mg subcut DAILY Qty: 9 3RF Rx Instructions: Take 0.6 mg once daily for first week then increase to 1.2 mg once daily sumatriptan succinate 50 mg tablet 50 mg PO ONCE MDD 200 mg PRN (Reason: migraine) Qty: 30 0RF Rx Instructions: A second dose can be taken if no response after 2 hours ondansetron 4 mg tablet,disintegrating 4 mg PO TID PRN (Reason: nausea and vomiting) Qty: 15 0RF atorvastatin 10 mg tablet 10 mg PO DAILY Qty: 90 3RF (DME) pen needle, diabetic [CareFine Pen Needle] 31 gauge x 5/16 needle See Rx Instructions .Route Qty: 100 3RF Rx Instructions: Use daily with Victoza. Keep A1c under 7 Mirena 1 EACH intrauterine device 1 device intrauterine DIRECTED acetaminophen 500 mg Tablet 1,000 mg PO PRN PRN ibuprofen 400 mg Tablet 400 mg PO Q6H PRN Discharge Instructions Instructions: Flank Pain (ED) Additional Instructions: It is likely that he passed a kidney stone this evening. Please follow-up with your primary care physician. Please return the emergency department he develop worsening symptoms such as back pain abdominal pain nausea vomiting fevers chills urinary issues or other abnormal symptoms. Medical Decision Making 41-year-old female history of kidney stones presents with right flank pain radiating down to her right abdomen associate with urinary frequency and urinary difficulty this evening. Hemodynamically stable afebrile nontoxic no CVA tenderness. Consider likely kidney stone versus UTI versus less likely pyelonephritis versus unlikely appendicitis or cholecystitis. Analgesia, CT Noncon of abdomen and pelvis, urinalysis urine test. Disposition pending imaging 23: 21 resting comfortably no acute distress. Hematuria on urinalysis. History and physical as well as imaging consistent with likely passed kidney stone. Given home care instructions and return precautions. HPI General Date/Time Provider Initiated Documentation: 01/10/22 20:25 . HPI Narrative: 41-year-old female history of diabetes, prior kidney stones presents with right flank discomfort rating down the right abdomen associated with urinary frequency and some difficulty urinating. Related Data Home Medications Medication Instructions Recorded Confirmed levonorgestrel 20 mcg/24 hours (7 1 device intrauterine DIRECTED 03/17/16 01/10/22 yrs) 52 mg intrauterine device (Mirena) blood sugar diagnostic (Blood #100 ea 01/03/19 12/28/21 Glucose Test strips) lancets #100 ea 01/03/19 12/28/21 acetaminophen 500 mg tablet 1,000 mg PO PRN PRN 03/08/20 12/28/21 ibuprofen 400 mg tablet 400 mg PO Q6H PRN 03/08/20 12/28/21 hydroxyzine HCl 25 mg tablet 25 - 50 mg PO QID PRN anxiety #60 12/09/20 01/10/22 tab-caps sertraline 50 mg tablet 50 mg PO DAILY #90 tab-caps 03/18/21 01/10/22 liraglutide 0.6 mg/0.1 mL (18 mg/3 1.2 mg (0.2 mL) subcut DAILY #9 mL 09/09/21 01/10/22 mL) subcutaneous pen injector (Victoza 3-Chas) pen needle, diabetic 31 gauge x #100 ea 09/13/21 12/28/2111/08 (CareFine Pen Needle) atorvastatin 10 mg tablet 10 mg PO DAILY #90 tab-caps 10/28/21 01/10/22 ondansetron 4 mg disintegrating 4 mg PO TID PRN nausea and 10/28/21 12/28/21 tablet vomiting #15 tab-caps sumatriptan succinate 50 mg tablet 50 mg PO ONCE PRN migraine #30 10/28/21 01/10/22 tab-caps prochlorperazine maleate 5 mg See Rx Instructions PO TID PRN 12/28/21 01/10/22 tablet nausea and vomiting #60 tabs Previous Rx's Medication Instructions Recorded blood sugar diagnostic (Blood #100 ea 01/03/19 Glucose Test strips) lancets #100 ea 01/03/19 hydroxyzine HCl 25 mg tablet 25 - 50 mg PO QID PRN anxiety #60 12/09/20 tab-caps sertraline 50 mg tablet 50 mg PO DAILY #90 tab-caps 03/18/21 liraglutide 0.6 mg/0.1 mL (18 mg/3 1.2 mg (0.2 mL) subcut DAILY #9 mL 09/09/21 mL) subcutaneous pen injector (Balls.ietoza 3-Chas) pen needle, diabetic 31 gauge x #100 ea 09/13/2111/08 (CareFine Pen Needle) atorvastatin 10 mg tablet 10 mg PO DAILY #90 tab-caps 10/28/21 ondansetron 4 mg disintegrating 4 mg PO TID PRN nausea and 10/28/21 tablet vomiting #15 tab-caps sumatriptan succinate 50 mg tablet 50 mg PO ONCE PRN migraine #30 10/28/21 tab-caps prochlorperazine maleate 5 mg See Rx Instructions PO TID PRN 12/28/21 tablet nausea and vomiting #60 tabs Allergies Allergy/AdvReac Type Severity Reaction Status Date / Time metformin Allergy Mild Hives Verified 01/10/22 20:33 phenazopyridine HCl AdvReac vomiting Verified 01/10/22 20:33 [From Pyridium] Novacane AdvReac Shakiness Uncoded 01/10/22 20:33 General Stated Complaint: FlankPain EILEEN: 3 Review of Systems Narrative: Review of Systems Constitutional: negative Eyes: negative ENT: negative Cardiovascular: negative Respiratory: negative Gastrointestinal: negative : Flank pain, urinary frequency Musculoskeletal: negative Skin: negative Neurologic: negative Psych: negative PFSH All Active Problems (Updated 01/10/22 @ 23:22 by Bo Pizano MD) Acute flank pain (Acute) Migraine (Chronic) Dyslipidemia associated with type 2 diabetes mellitus (Chronic) Low HDL; statin for T2DM dx Anxiety and depression (Chronic) Type 2 diabetes mellitus (Chronic ~12/2018) Obesity (Chronic) Mitral valve regurgitation (Chronic) most recent echo 10/06/2020: mild --> repeat 5 years JOSSY (obstructive sleep apnea) (Chronic) 02/02/21 Cpap machine and ov at [facility] Venous insufficiency of both lower extremities (Chronic 01/23/15) IUD surveillance (Acute) Medical History Diverticula of colon Nephrolithiasis Pulmonic stenosis (01/23/15) Diagnosed 8 y/o (followed at [facility]); Cardiology consult 12/2014; most recent echo 09/2020: RESOLVED Tobacco use disorder QUIT 03/2018 (0.5 PPD x 5 years = 2.5 PY) Surgical History History of colonoscopy (~09/2020) Status post tonsillectomy Status post tubal ligation Family History Mother , CAD at age 55. Diabetes Hypertension Father Heart disease MS, Stents Myocardial infarction Hypertension Brother Diabetes Hypertension Grandmother Diabetes Grandmother Diabetes Maternal Aunt Breast cancer Social History Smoking/Tobacco Use Status: Never Second Hand Exposure: Yes Smoking risk assessment performed?: Yes Alcohol Intake: current Alcohol Intake frequency: holidays/special occasions only Drug use: Never Substance use type: does not use Adopted: No Caregiver/Support person: No Foster care: No Household members: significant other and children Housing: apartment Number of Children: 3 number of grandchildren: 3 Communication Needs: None Education Level: high school Do you need help understanding health information?: Never 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 [employer] Pets and animals: Yes Pets and animals: cat(s) and snake(s) Sexually active: Yes Do you think of yourself as: straight/heterosexual Current gender identity: female Other: x 2 (most recent 10/2020) What is your relationship status?: living with partner How often do you talk on the phone with friends or family?: three or more times per week How often do you get together with friends or relatives?: twice per week Do you belong to any clubs or organized social groups?: no Panel score (0-1 are the most socially isolated patients): 2 What type of physical activity do you participate in: other Details: gym, Duration: 15-30 minutes/day Frequency: 1-2 times per week Special lul needs: No Seatbelt use: always Helmet use: Yes Drive intox or ride w/intox reach lift truck driver: No Water heater temp set <120 deg: Yes Working smoke detector in home: Yes Fire extinguisher in home: Yes Carbon monox detector in home: Yes Firearms in home: No Do you feel safe at home: Yes Do you feel safe in your relationship?: Yes Exam Narrative Exam Narrative: Physical Examination General: alert, awake, cooperative, resting comfortably, no acute distress HEENT: normocephalic, atraumatic; PERRL, EOM intact, conjunctiva normal; no nasal discharge; moist mucous membranes, oral and pharyngeal mucosa normal, tolerating secretions Neck: supple, trachea midline; full ROM Chest: normal to inspection Respiratory: normal respiratory effort, speaking in full sentences, clear to auscultation, no wheezing, rales or rhonchi Cardiac: regular rate, regular rhythm, S1S2 intact, no murmurs rubs or gallops GI: abdomen soft, non-tender, non-distended; no palpable mass or hepatosplenomegaly : No CVA tenderness Skin: no lesions, rashes or trauma appreciated Neuro: AAOx3, normal speech, moving all extremities Psych: Appropriate mood and affect Course Vital Signs Vital signs: Vital Signs Temperature 36.7 C 01/10/22 20:28 Pulse 89 01/10/22 20:28 Respiratory Rate 16 01/10/22 20:28 Pulse Oximetry 99 01/10/22 20:28 Temperature 36.7 C 01/10/22 20:28 Temperature Source Oral 01/10/22 20:28 Pulse 89 01/10/22 20:28 Respiratory Rate 16 01/10/22 20:28 Respiratory Effort Non-Labored 07/18/22 20:30 Blood Pressure Position Sitting 01/10/22 20:28 Pulse Oximetry 99 01/10/22 20:28 Oxygen Delivery Method Room Air 01/10/22 20:28 Oxygen Flow Rate 0 01/10/22 20:28 Pain Level 7 01/10/22 20:30 Lab/Test Results Lab/Test Results: Laboratory Tests Range/Units 01/10/22 20:38 Urine Color (Yellow) Yellow Urine Clarity (Clear) Clear Urine pH (5-8) 5.5 Ur Specific [place] (1.005-1.025) >= 1.030 H Urine Protein (Negative) mg/dL Negative Urine Ketones (Negative) mg/dL Negative Urine Blood (Negative) Moderate H Urine Nitrite (Negative) Negative Urine Bilirubin (Negative) Negative Urine Urobilinogen (Up TO 0.2) EU/dL 0.2 Ur Leukocyte Esterase (Negative) Negative Urine RBC (0-2) HPF 10-20 H Urine WBC (0-5) HPF 3-5 Ur Epithelial Cells (Negative) HPF Moderate Urine Crystals (Negative) HPF Few Amorphous Urine Bacteria (Negative) HPF Rare Urine Mucus (Negative) Moderate Urine Other (Negative) Few Renal Ur Culture Indicated? No/Sq. Contamination Urine Glucose (Negative) mg/dL Negative POC- Test(urine) Negative
--- NOTE | 2022-01-10 21:59 | DI.VRAD_ITS ---
PROCEDURE INFORMATION: Exam: CT Abdomen And Pelvis Without Contrast Exam date and time: 01/10/2022 9:14 PM Age: 41 years old Clinical indication: Prior surgery; Surgery date: 6+ months; Surgery type: Tubal ligation; Patient HX: R flank pain, concern for kidney stone TECHNIQUE: Imaging protocol: Computed tomography of the abdomen and pelvis without contrast. Radiation optimization: All CT scans at this facility use at least one of these dose optimization techniques: automated exposure control; mA and/or kV adjustment per patient size (includes targeted exams where dose is matched to clinical indication); or iterative reconstruction. Other technique: The examination is technically less than ideal due to patient body habitus. COMPARISON: CT ABDOMEN PELVIS W 08/04/2020 1:57 PM FINDINGS: Tubes, catheters and devices: Metallic IUD appears satisfactorily positioned in anteverted uterus. Heart: Diminished attenuation of cardiac chambers in comparison to myocardium which can be seen with anemia. Correlate clinically. Heart top normal in size. Liver: There is diffuse decrease in hepatic parenchymal density, consistent with moderate fatty infiltration. Liver top normal in size. No mass. Gallbladder and bile ducts: Normal. No calcified stones. No ductal dilation. Pancreas: Normal. No ductal dilation. Spleen: Normal. No splenomegaly. Adrenal glands: Normal. No mass. Kidneys and ureters: Minute radiopaque calculi in each kidney. No radiopaque ureteric calculi. No hydronephrosis.There is subtle, bilateral perinephric stranding which is nonspecific. Stomach and bowel: No dilated loops of small bowel or colonic dilatation. There are few, scattered colonic diverticula. Appendix: Normal appendix, 2/50-56. Intraperitoneal space: No free intraperitoneal gas or ascites. Vasculature: Unremarkable. No abdominal aortic aneurysm. Lymph nodes: Unremarkable. No enlarged lymph nodes. Urinary bladder: Unremarkable as visualized. Reproductive: Unremarkable as visualized. Bones/joints: The spine demonstrates mild degenerative changes at multiple levels. Soft tissues: Unremarkable. IMPRESSION: 1. Subtle, perinephric stranding of fat which could have several possible etiologies including scarring, third spacing of fluid, inflammatory process or infection. 2. Minute bilateral renal calculi. 3. Anemia suspected. 4. IUD. 5. Scattered colonic diverticula. Dictated and Authenticated by: Jose Villeda MD. Ordering:JAKI Soriano MD
== END 2022-01-10 23:47 | disposition home or self-care (01) ==
PROVIDERS: Emergency Provider Emergency Medicine; PCP Nurse Practitioner Family
DX: R10.9 Unspecified abdominal pain (principal); R35.0 Frequency of micturition
CPT/HCPCS: 81025; 96372; 99284; 74176; 81003; 81015; 99283; J1885

== ENCOUNTER 2022-02-27 22:00 | Emergency (ER) | payer SELFPAY ==
--- NOTE | 2022-02-27 22:00 | DI.CT_ITS ---
Exam(s) CT RENAL COLIC WO EXAM: CT RENAL COLIC WO CLINICAL HISTORY: left flank pain, r/o stone. TECHNIQUE: Imaging Protocol: Axial computed tomography images with coronal and sagittal reformatted images were created and reviewed. CONTRAST MATERIAL: Noncontrast COMPARISON: CT CT ABDOMEN PELVIS WO from 01/10/2022 FINDINGS: ABDOMEN: Lung Bases: Normal where visualized. Liver: Fatty infiltration. No measurable mass. Gallbladder and biliary tract: Contracted. No radiodense calculus or dilation. Pancreas: Normal density, no calcifications or inflammatory process. Spleen: Normal. Kidneys: Normal size, contour and axis. There is mild right hydronephrosis secondary to a 4 millimete r stone at the ureterovesical junction. Other small bilateral nonobstructing stones are noted. No m asses seen. Adrenal glands: No masses seen. Abdominal Aorta: Abdominal portion non-dilated. IVC: Anatomic variant of double IVC. PELVIS: Bladder: Nearly empty. No gross wall thickening. Bowel: No obstruction or bowel wall thickening. Appendix normal. Reproductive: IUD. Peritoneal cavity: No ascites, collection or mesenteric inflammatory response. Bones: Within normal limits. IMPRESSION: Mild left hydronephrosis secondary to 4 millimeter stone at the ureterovesical junction. Other small nonobstructing stones are seen bilaterally. RADIATION DOSE DELIVERED: 1,119.36mGy.cm Total DLP DATA REPOSITORY: All CT scans at this facility are submitted to the National Radiology Data Registry (NRDR) Dose Index Registry (DIR) with the [employer] (A[employer]). RADIATION OPTIMIZATION: All CT scans at this facility use at least one of these dose optimization te chniques: automated exposure control; mA and/or kV adjustment per patient size (includes targeted exa ms where dose is matched to clinical indication); or iterative reconstruction.
[2022-02-27 22:05] VITALS: BP 133/60; PULSE 92; RESP 16; TEMP 36.6; O2SAT 98
--- NOTE | 2022-02-27 22:11 | ED.GENADUL_ITS ---
Discharge Plan Disposition Patient Disposition: HOME Condition: Good Discharge Details Clinical Impression: Calculus of left kidney Primary Care Provider: Alexa Penn ED Provider: Francisco Aleman Home Meds and New Rx's Prescriptions: New tamsulosin [Flomax] 0.4 mg capsule 0.4 mg PO DAILY Qty: 7 0RF No Action (DME) Blood Glucose Test strip See Rx Instructions .ROUTE .MEDSUPPLY Qty: 100 3RF Rx Instructions: As directed to check daily blood glucose. No insulin. Dispense covered brand. Dx: E11.9 to maintain HbA1c less than 7%. (DME) lancets misc See Rx Instructions .ROUTE .MEDSUPPLY Qty: 100 3RF Rx Instructions: As directed to check daily blood glucose. No insulin. Dispense covered brand. Dx: E11.9 to maintain HbA1c less than 7%. hydroxyzine HCl 25 mg tablet 25 - 50 mg PO QID PRN (Reason: anxiety) Qty: 60 0RF prochlorperazine maleate 5 mg tablet See Rx Instructions PO TID PRN (Reason: nausea and vomiting) Qty: 60 3RF Rx Instructions: 5-10 mg orally three times a day PRN; sertraline 50 mg tablet 50 mg PO DAILY Qty: 90 3RF Victoza 3-Chas 0.6 mg/0.1 mL (18 mg/3 mL) pen injector 1.2 mg subcut DAILY Qty: 9 3RF Rx Instructions: Take 0.6 mg once daily for first week then increase to 1.2 mg once daily sumatriptan succinate 50 mg tablet 50 mg PO ONCE MDD 200 mg PRN (Reason: migraine) Qty: 30 0RF Rx Instructions: A second dose can be taken if no response after 2 hours ondansetron 4 mg tablet,disintegrating 4 mg PO TID PRN (Reason: nausea and vomiting) Qty: 15 0RF atorvastatin 10 mg tablet 10 mg PO DAILY Qty: 90 3RF (DME) pen needle, diabetic [CareFine Pen Needle] 31 gauge x 5/16 needle See Rx Instructions .Route Qty: 100 3RF Rx Instructions: Use daily with Victoza. Keep A1c under 7 topiramate [Topamax] 25 mg tablet 25 mg PO QHS Qty: 30 2RF Mirena 1 EACH intrauterine device 1 device intrauterine DIRECTED acetaminophen 500 mg Tablet 1,000 mg PO PRN PRN ibuprofen 400 mg Tablet 400 mg PO Q6H PRN Discharge Instructions Instructions: Kidney Stones (ED) Additional Instructions: You have evidence of a 4 mm kidney stone on the left. It is almost at the end. Please take Tylenol or Motrin as needed for pain. Take the [place] as needed for breakthrough pain. Please take the Flomax every day as directed. This is been sent to your pharmacy on file. Please strain your urine to catch the stone. Drink plenty of fluids and take cranberry concentrate. If you notice any worsening of your symptoms, or any new symptoms such as vomiting, diarrhea, fever, chills, shortness of breath, chest pain, numbness, weakness, or fainting , please return immediately to the emergency department for reevaluation. Please follow up with your primary care provider as soon as possible for reassessment and reevaluation. As always, it was a pleasure participating in your medical c are today. Referrals: Alexa Penn NP [Primary Care Provider] - Medical Decision Making 41-year-old female with a past medical history of type 2 diabetes, mitral regurg, obstructive sleep apnea, and previous kidney stones presents today for evaluation of left flank pain. Patient states that about 2 to 3 hours ago she developed sudden onset left flank pain that is gradually transition down to the lower left flank. She does admit to some left lower flank pressure, but denies any hematuria. No fever or chills. No other complaints at this time. Patient did have similar symptoms in early December of this year 2 months ago, but no kidney stone was found at that time but she did have some hydro ureter and hydronephrosis then. Exam demonstrates mild left CVA tenderness and left lower quadrant tenderness. Differential includes kidney stones versus diverticulitis. We will get a CT scan, treat her pain, rehydrate, monitor closely and reassess. 11:09 PM Laboratory work-up is returned, mild white count of 15, no bandemia. Renal function excellent. Urinalysis shows no evidence of infection. Patient feels much better on reassessment. CT scan shows 4 mm stone in the left UVJ, consistent with her symptoms. With no evidence of infection, pain resolved, and for stone being notably distal we will give Flomax, and continue outpatient therapy. Discussed red flags which to return. I have extensively reviewed the treatment plan and discharge instructions with the patient. I have addressed all patient concerns at this time. The patient was made aware of what symptoms to monitor for that would warrant a return to the emergency department. Discussed the plan with the patient, they demonstrate verbal understanding and agreement with our assessment and plan at this time. The documentation in this chart was dictated using [employer] dictation software. Please excuse any dictation errors. Reproductive: IUD in place. Uterus and adnexa are otherwise unremarkable. Bones/joints: Unremarkable. No acute fracture. Soft tissues: Unremarkable. IMPRESSION: 1. 4 mm duct in left ureterovesicular junction calculus. 2. Right renal benign cyst. No further imaging required. 3. Bilateral punctate nonobstructing renal calculi. 4. Bladder wall thickening, likely due to nondistention; correlate clinically to exclude cystitis. Thank you for allowing us to participate in the care of your patient. Dictated and Authenticated by: Naresh Cortez MD 02/27/2022 10:50 PM Eastern Time ([place] & [place]) HPI General Date/Time Provider Initiated Documentation: 02/27/22 22:01 . HPI Narrative: 41-year-old female with a past medical history of type 2 diabetes, mitral regurg, obstructive sleep apnea, and previous kidney stones presents today for evaluation of left flank pain. Patient states that about 2 to 3 hours ago she developed sudden onset left flank pain that is gradually transition down to the lower left flank. She does admit to some left lower flank pressure, but denies any hematuria. No fever or chills. No other complaints at this time. Patient did have similar symptoms in early December of this year 2 months ago, but no kidney stone was found at that time but she did have some hydro ureter and hydronephrosis then. Related Data Home Medications Medication Instructions Recorded Confirmed levonorgestrel 20 mcg/24 hours (7 1 device intrauterine DIRECTED 03/17/02/27/22 yrs) 52 mg intrauterine device (Mirena) blood sugar diagnostic (Blood #100 ea 01/03/19 02/27/22 Glucose Test strips) lancets #100 ea 01/03/19 02/27/22 acetaminophen 500 mg tablet 1,000 mg PO PRN PRN 03/08/20 02/27/22 ibuprofen 400 mg tablet 400 mg PO Q6H PRN 03/08/20 02/27/22 hydroxyzine HCl 25 mg tablet 25 - 50 mg PO QID PRN anxiety #60 12/09/20 02/27/22 tab-caps sertraline 50 mg tablet 50 mg PO DAILY #90 tab-caps 03/18/21 02/27/22 liraglutide 0.6 mg/0.1 mL (18 mg/3 1.2 mg (0.2 mL) subcut DAILY #9 mL 09/09/21 02/27/22 mL) subcutaneous pen injector (Victoza 3-Chas) pen needle, diabetic 31 gauge x #100 ea 09/13/21 02/27/2211/08 (CareFine Pen Needle) atorvastatin 10 mg tablet 10 mg PO DAILY #90 tab-caps 10/28/21 02/27/22 ondansetron 4 mg disintegrating 4 mg PO TID PRN nausea and 10/28/21 02/27/22 tablet vomiting #15 tab-caps sumatriptan succinate 50 mg tablet 50 mg PO ONCE PRN migraine #30 10/28/21 02/27/22 tab-caps prochlorperazine maleate 5 mg See Rx Instructions PO TID PRN 12/28/21 02/27/22 tablet nausea and vomiting #60 tabs topiramate 25 mg tablet (Topamax) 25 mg PO QHS #30 tabs 01/27/22 02/27/22 tamsulosin 0.4 mg capsule (Flomax) 0.4 mg PO DAILY #7 caps 02/27/22 Previous Rx's Medication Instructions Recorded blood sugar diagnostic (Blood #100 ea 01/03/19 Glucose Test strips) lancets #100 ea 01/03/19 hydroxyzine HCl 25 mg tablet 25 - 50 mg PO QID PRN anxiety #60 12/09/20 tab-caps sertraline 50 mg tablet 50 mg PO DAILY #90 tab-caps 03/18/21 liraglutide 0.6 mg/0.1 mL (18 mg/3 1.2 mg (0.2 mL) subcut DAILY #9 mL 09/09/21 mL) subcutaneous pen injector (Victoza 3-Chas) pen needle, diabetic 31 gauge x #100 ea 09/13/21/16 (CareFine Pen Needle) atorvastatin 10 mg tablet 10 mg PO DAILY #90 tab-caps 05/05/22 ondansetron 4 mg disintegrating 4 mg PO TID PRN nausea and 10/28/21 tablet vomiting #15 tab-caps sumatriptan succinate 50 mg tablet 50 mg PO ONCE PRN migraine #30 10/28/21 tab-caps prochlorperazine maleate 5 mg See Rx Instructions PO TID PRN 12/28/21 tablet nausea and vomiting #60 tabs topiramate 25 mg tablet (Topamax) 25 mg PO QHS #30 tabs 01/27/22 tamsulosin 0.4 mg capsule (Flomax) 0.4 mg PO DAILY #7 caps 02/27/22 Allergies Allergy/AdvReac Type Severity Reaction Status Date / Time metformin Allergy Mild Hives Verified 02/27/22 22:09 phenazopyridine HCl AdvReac vomiting Verified 02/27/22 22:09 [From Pyridium] Novacane AdvReac Shakiness Uncoded 02/27/22 22:09 General Stated Complaint: FlankPain EILEEN: 3 Review of Systems All systems reviewed & are unremarkable except as noted in HPI and below PFSH All Active Problems (Updated 02/27/22 @ 23:05 by Francisco Aleman DO) Calculus of left kidney (Acute) Migraine (Chronic) Dyslipidemia associated with type 2 diabetes mellitus (Chronic) Low HDL; statin for T2DM dx Anxiety and depression (Chronic) Type 2 diabetes mellitus (Chronic ~12/2018) Obesity (Chronic) Mitral valve regurgitation (Chronic) most recent echo 10/06/2020: mild --> repeat 5 years JOSSY (obstructive sleep apnea) (Chronic) 02/02/21 Cpap machine and ov at [facility] Venous insufficiency of both lower extremities (Chronic 01/23/15) IUD surveillance (Acute) Medical History Diverticula of colon Nephrolithiasis Pulmonic stenosis (01/23/15) Diagnosed 8 y/o (followed at [facility]); Cardiology consult 12/2014; most recent e cho 09/2020: RESOLVED Tobacco use disorder QUIT 03/2018 (0.5 PPD x 5 years = 2.5 PY) Surgical History History of colonoscopy (~09/2020) Status post tonsillectomy Status post tubal ligation Family History Mother , CAD at age 55. Diabetes Hypertension Father Heart disease [place], Stents Myocardial infarction Hypertension Brother Diabetes Hypertension Grandmother Diabetes Grandmother Diabetes Maternal Aunt Breast cancer Social History Smoking/Tobacco Use Status: Never Second Hand Exposure: Yes Smoking risk assessment performed?: Yes Alcohol Intake: never Drug use: Never Substance use type: does not use Adopted: No Caregiver/Support person: No Foster care: No Household members: significant other and children Housing: apartment Number of Children: 3 number of grandchildren: 3 Communication Needs: None Education Level: high school Do you need help understanding health information?: Never 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 [employer] Pets and animals: Yes Pets and animals: cat(s) and snake(s) Sexually active: Yes Do you think of yourself as: straight/heterosexual Current gender identity: female Other: x 2 (most recent 10/2020) What is your relationship status?: living with partner How often do you talk on the phone with friends or family?: three or more times per week How often do you get together with friends or relatives?: twice per week Do you belong to any clubs or organized social groups?: no Panel score (0-1 are the most socially isolated patients): 2 What type of physical activity do you participate in: other Details: gym, Duration: 15-30 minutes/day Frequency: 1-2 times per week Special lul needs: No Seatbelt use: always Helmet use: Yes Drive intox or ride w/intox local driver: No Water heater temp set <120 deg: Yes Working smoke detector in home: Yes Fire extinguisher in home: Yes Carbon monox detector in home: Yes Firearms in home: No Do you feel safe at home: Yes Do you feel safe in your relationship?: Yes Exam Narrative Exam Narrative: 1.Const: Well-nourished, Well-developed, appearing stated age 2.Eyes: PERRL, no conjunctival injection, and symmetrical lids. 3.ENT: Atraumatic external nose and ears. Moist MM. Neck: Symmetric, trachea midline, No thyromegaly. 4.CVS: +S1/S2, No murmurs or gallops. Peripheral pulses 2+ and equal in all extremities. Brisk capillary refill in all extremities. 5.RESP: Unlabored respiratory effort. Clear to auscultation bilaterally. No wheezes rales or rhonchi 6.GI: Soft, Nontender/Nondistended, No hepatosplenomegaly. No guarding or rebound. mild left CVA tenderness. Mild left lower quadrant tenderness. 7.MSK: Normocephalic/Atraumatic, Extremities w/o deformity or ttp No cyanosis or clubbing, Normal movement of all extremities 8.Skin: Warm, Dry. No rashes or lesions. 9.Neuro: private security guard II-XII grossly intact. Sensation grossly intact, no focal neurologic deficits. 10.Psych: (AAO) x3. Appropriate mood and affect Course Vital Signs Vital signs: Vital Signs Temperature 36.6 C 02/27/22 22:05 Pulse 92 H 02/27/22 22:05 Respiratory Rate 16 02/27/22 22:05 Blood Pressure 133/60 02/27/22 22:05 Pulse Oximetry 98 02/27/22 22:05 Temperature 36.6 C 02/27/22 22:05 Temperature Source Tympanic 02/27/22 22:05 Pulse 92 H 02/27/22 22:05 Respiratory Rate 16 02/27/22 22:05 Respiratory Effort 02/27/22 22:05 Blood Pressure 133/60 02/27/22 22:05 Blood Pressure Position Sitting 02/27/22 22:05 Pulse Oximetry 98 02/27/22 22:05 Oxygen Delivery Method Room Air 02/27/22 22:05 Oxygen Flow Rate 0 02/27/22 22:05 Pain Level 10 02/27/22 22:05
[2022-02-27 22:31] LABS: Abs Immature Grans 0.08 10^3/uL (0.0-0.06); Absolute Basophil Count 0.12 10^3/uL (0.0-0.2); Absolute Lymphocyte Count 5.12 10^3/uL (1.2-3.4); Basophils % 0.8; Eosinophils % 1.5; HCT 39.1 % (36.0-46.0); HGB 12.7 g/dL (11.2-15.7); Immature Grans % 0.5; Lymphocytes % 32.8; MCH 27.3 pg (27.0-33.0); MCHC 32.5 % (32.0-36.0); MCV 84 fL (80-95); MPV 10.2 fL (8.0-11.0); Monocytes % 6.4; Platelet Count 373 10^3/uL (130-400); RBC 4.65 10^6/uL (3.93-5.22); RDW-SD 42.9 fL
[2022-02-27 22:33] LABS: Bilirubin Negative (Negative); Blood Large (Negative); Clarity Cloudy (Clear); Glucose Negative (Negative); Ketones Trace mg/dL (Negative); Leukocyte Esterase Negative (Negative); Nitrite Negative (Negative); Specific Gravity >= 1.030 (1.005-1.025); Urobilinogen 0.2 EU/dL (Up TO 0.2); pH 5.5 (5-8)
[2022-02-27 22:34] LABS: Absolute Eosinophil Count 0.23 10^3/uL (0.0-0.7); Absolute Neutrophil Count 9.05 10^3/uL (1.2-6.7)
[2022-02-27 22:40] LABS: Bacteria Few HPF (Negative); C & S Indicated? No; Crystals Negative HPF (Negative); Epithelial Cells Many HPF (Negative); Mucus Negative (Negative); RBC >50 HPF (0-2)
[2022-02-27 22:42] LABS: ALT 20 U/L (14-59); AST 31 U/L (15-37); Albumin 3.9 g/dL (3.4-5.0); Alkaline Phosphatase 110 U/L (46-116); Anion Gap 7.2 mmol/L (3-11); BUN 16 mg/dL (7-18); Bilirubin, Total 0.4 mg/dL (0.2-1.0); CO2 26.8 mmol/L (21.0-32.0); Calcium 9.1 mg/dL (8.5-10.1); Chloride 104 mmol/L (98-107); Estimated GFR 72.13 (mL/min/1.73m2); Glucose 147 mg/dL (74-106); Sodium 138 mmol/L (136-145); Total Protein 8.8 g/dL (6.4-8.2)
[2022-02-27] MEDS: Ketorolac 15 MG/ML VIAL IVP (22:45)
[2022-02-27] MEDS: MORPHine 4 MG/ML SYR IVP (22:45)
[2022-02-27] MEDS: Normal Saline 1,000 ML 1000 ML IV (22:46)
[2022-02-27 22:47] LABS: Diff Comment Agrees w/ Instrument; RBC Morphology Normal
--- NOTE | 2022-02-27 22:50 | DI.VRAD_ITS ---
PROCEDURE INFORMATION: Exam: CT Abdomen And Pelvis Without Contrast Exam date and time: 02/27/2022 10:29 PM Age: 41 years old Clinical indication: Abdominal pain; Flank; Left; Additional info: Left flank pain, R/O kidney stones, has had kidney stones in the past TECHNIQUE: Imaging protocol: Computed tomography of the abdomen and pelvis without contrast. COMPARISON: CT ABDOMEN PELVIS WO 01/10/2022 9:14 PM FINDINGS: Lungs: Minimal scarring in the left lung base. Liver: Normal. No mass. Gallbladder and bile ducts: Normal. No calcified stones. No ductal dilation. Pancreas: Normal. No ductal dilation. Spleen: Normal. No splenomegaly. Adrenal glands: Normal. No mass. Kidneys and ureters: 4 mm left ureterovesicular junction calculus with mild proximal hydroureteronephrosis. Minimal left perinephric fat stranding. Punctate nonobstructing left renal calculi. Sub cm hypodensity in the right kidney likely represents a benign cyst. Punctate nonobstructing right renal lower pole calculus. Stomach and bowel: Unremarkable. No obstruction. No mucosal thickening. Appendix: No evidence of appendicitis. Intraperitoneal space: Unremarkable. No free air. No significant fluid collection. Vasculature: Unremarkable. No abdominal aortic aneurysm. Lymph nodes: Unremarkable. No enlarged lymph nodes. Urinary bladder: Urinary bladder is nondistended with diffuse mural thickening. Reproductive: IUD in place. Uterus and adnexa are otherwise unremarkable. Bones/joints: Unremarkable. No acute fracture. Soft tissues: Unremarkable. IMPRESSION: 1. 4 mm duct in left ureterovesicular junction calculus. 2. Right renal benign cyst. No further imaging required. 3. Bilateral punctate nonobstructing renal calculi. 4. Bladder wall thickening, likely due to nondistention; correlate clinically to exclude cystitis. Dictated and Authenticated by: Naresh Cortez MD. Ordering:LINDA Singh MD
[2022-02-27] MEDS: Tamsulosin 0.4 MG CAPCR PO (23:21)
== END 2022-02-27 23:22 | disposition home or self-care (01) ==
PROVIDERS: Emergency Provider Student in an Organized Health Care Education/Training Program; PCP Nurse Practitioner Family
DX: N13.2 Hydronephrosis with renal and ureteral calculous obstruction (principal); E11.9 Type 2 diabetes mellitus without complications
CPT/HCPCS: 80053; 96361; 96374; 96375; 99284; 74176; 81003; 81015; 85025; J1885; J2270

== ENCOUNTER 2022-06-02 09:41 | Outpatient (REF) | payer BC, SELFPAY ==
[2022-06-05 00:45] LABS: Influenza A RNA Result Positive (Negative); Influenza B RNA Result Negative (Negative); RSV RNA Result Negative (Negative)
[2022-06-05 00:57] LABS: COVID-19 RT-PCR UVMMC Result Negative (Negative)
== END 2022-06-02 09:42 | disposition home or self-care (01) ==
LOC: LBN 09:41
PROVIDERS: Nurse Practitioner; PCP Nurse Practitioner Family; Visit Provider Nurse Practitioner Family
DX: R53.83 Other fatigue (principal); R05.8 Other specified cough; R06.2 Wheezing; Z20.822 Contact with and (suspected) exposure to COVID-19
CPT/HCPCS: 87631; U0003

== ENCOUNTER 2022-11-10 11:51 | Outpatient (REF) | payer BC, SELFPAY ==
[2022-11-10 16:51] LABS: COVID-19 PCR Negative (Negative); Influenza A PCR Negative (Negative); Influenza B PCR Negative (Negative); RSV PCR Negative (Negative)
[2022-11-10 16:54] LABS: Source Nasopharynx
== END 2022-11-10 11:52 | disposition home or self-care (01) ==
LOC: LBN 11:51
PROVIDERS: PCP Nurse Practitioner Family; Visit Provider Student in an Organized Health Care Education/Training Program
DX: H93.8X2 Other specified disorders of left ear (principal); J06.9 Acute upper respiratory infection, unspecified; R09.81 Nasal congestion; R51.9 Headache, unspecified; Z20.822 Contact with and (suspected) exposure to COVID-19
CPT/HCPCS: 87637

== ENCOUNTER 2023-03-13 02:07 | Emergency (ER) | payer SELFPAY ==
[2023-03-13 02:09] VITALS: BP 149/80; PULSE 95; RESP 16; TEMP 36.8; O2SAT 98
[2023-03-13] MEDS: Ondansetron 4 MG/2 ML VIAL 8 MG IVP (02:30)
[2023-03-13] MEDS: Ketorolac 30 MG/ML VIAL 15 MG IVP (02:31)
[2023-03-13] MEDS: HYDROmorphone 2 MG/ML SYR 1 MG IVP ×2 (02:32→04:43)
[2023-03-13] MEDS: Normal Saline 1,000 ML 1000 ML IV (02:39)
[2023-03-13 02:42] LABS: Bilirubin Negative (Negative); Blood Moderate (Negative); Clarity Sl Cloudy (Clear); Glucose Negative (Negative); Ketones Trace mg/dL (Negative); Leukocyte Esterase Trace (Negative); Nitrite Negative (Negative); Specific Gravity 1.025 (1.005-1.025); Urobilinogen 0.2 mg/dL (Up to 0.2)
[2023-03-13 02:48] LABS: Absolute Basophil Count 0.11 10^3/uL (0.0-0.2); Absolute Monocyte Count 1.11 10^3/uL (0.1-0.8); Basophils % 0.7; Eosinophils % 1.5; HCT 40.9 % (36.0-46.0); HGB 13.2 g/dL (11.2-15.7); Immature Grans % 0.6; Lymphocytes % 29.9; MCH 26.7 pg (27.0-33.0); MCHC 32.3 % (32.0-36.0); MCV 83 fL (80-95); MPV 10.1 fL (8.0-11.0); Monocytes % 7.1; Neutrophils % 60.2; Platelet Count 366 10^3/uL (130-400); RBC 4.94 10^6/uL (3.93-5.22); RDW 14.2 % (11.7-14.6); RDW-SD 42.5 fL; WBC 15.57 10^3/uL (4.4-10.8)
[2023-03-13 02:50] LABS: Absolute Eosinophil Count 0.23 10^3/uL (0.0-0.7); Absolute Lymphocyte Count 4.66 10^3/uL (1.2-3.4); Absolute Neutrophil Count 9.37 10^3/uL (1.2-6.7); Anion Gap 11.6 mmol/L (3-11); BUN 18 mg/dL (7-18); CO2 25.4 mmol/L (21.0-32.0); CREATININE 1.1 mg/dL (0.55-1.02); Chloride 101 mmol/L (98-107); Estimated GFR 63.94 (mL/min/1.73m2); Glucose 157 mg/dL (74-106); Potassium 3.3 mmol/L (3.5-5.1); Sodium 138 mmol/L (136-145)
[2023-03-13 02:52] LABS: Bacteria Few HPF (Negative); C & S Indicated? No/Sq. Contamination; Crystals Negative HPF (Negative); Epithelial Cells Many HPF (Negative); Mucus Negative (Negative); WBC 0-2 HPF (0-5)
--- NOTE | 2023-03-13 03:15 | DI.CT_ITS ---
Exam(s) CT ABDOMEN PELVIS WO EXAM: CT ABDOMEN PELVIS WO CLINICAL HISTORY: L abd pain. TECHNIQUE: Imaging Protocol: Axial computed tomography images with coronal and sagittal reformatted images were created and reviewed. Oral: / no COMPARISON: CT CT RENAL COLIC WO from 02/27/2022 FINDINGS: ABDOMEN: Lung Bases: Normal where visualized. Liver: Normal density. No measurable mass. Gallbladder and biliary tract: No radiodense calculus or dilation. Pancreas: Normal density, no abnormal calcifications or inflammatory process. Spleen: Normal. Kidneys: Normal size, contour and axis. Mild right hydronephrosis secondary to a 6 millimeter stone a t the ureterovesical junction. Small nonobstructing stone mid left kidney. No right sided calculi. No masses seen. Adrenal glands: No masses seen. Lymph nodes: Within normal limits. Abdominal Aorta: Abdominal portion non-dilated. PELVIS: Bladder: Nearly empty.. Bowel: No obstruction or bowel wall thickening. Peritoneal cavity: No ascites, collection or mesenteric inflammatory response. Reproductive organs: IUD. Bones: Within normal limits. IMPRESSION: Mild left hydronephrosis secondary to a 6 millimeter stone at the ureterovesical junction. Additiona l small nonobstructing stone mid left kidney. RADIATION DOSE DELIVERED: 1,373.57mGy.cm Total DLP DATA REPOSITORY: All CT scans at this facility are submitted to the National Radiology Data Registry (NRDR) Dose Index Registry (DIR) with the [employer] (ACR). RADIATION OPTIMIZATION: All CT scans at this facility use at least one of these dose optimization te chniques: automated exposure control; mA and/or kV adjustment per patient size (includes targeted exa ms where dose is matched to clinical indication); or iterative reconstruction.
--- NOTE | 2023-03-13 03:17 | ED.GENADUL_ITS ---
Discharge Plan Disposition Patient Disposition: Home Condition: Good Discharge Details Clinical Impression: Kidney stone on left side Primary Care Provider: Alexa Penn ED Provider: Rosa Maldonado Home Meds and New Rx's Prescriptions: Continued (DME) Blood Glucose Test strip See Rx Instructions .ROUTE .MEDSUPPLY Qty: 100 3RF Rx Instructions: As directed to check daily blood glucose. No insulin. Dispense covered brand. Dx: E11.9 to maintain HbA1c less than 7%. (DME) lancets misc See Rx Instructions .ROUTE .MEDSUPPLY Qty: 100 3RF Rx Instructions: As directed to check daily blood glucose. No insulin. Dispense covered brand. Dx: E11.9 to maintain HbA1c less than 7%. Victoza 3-Chas 0.6 mg/0.1 mL (18 mg/3 mL) pen injector 1.8 mg subcut DAILY Qty: 9 3RF loratadine [Claritin] 10 mg tablet 10 mg PO DAILY fluticasone furoate 27.5 mcg/actuation spray,suspension 2 spray intranasal DAILY Qty: 5.9 1RF Rx Instructions: into each nostril, x 2 weeks [place] Saline 0.65 % drops 2 drp intranasal Q2H Qty: 50 1RF Rx Instructions: keep moist, flushed x 1-2 weeks (IF COVERED BY INS) topiramate [Topamax] 50 mg tablet 75 mg PO QHS Qty: 135 3RF prochlorperazine maleate 5 mg tablet See Rx Instructions PO TID PRN (Reason: nausea and vomiting) Qty: 60 3RF Rx Instructions: 5-10 mg orally three times a day PRN; sumatriptan succinate 100 mg tablet See Rx Instructions PO .COMPLEX Qty: 14 3RF Rx Instructions: take 1 tab at onset of headache; if no relief, may repeat 1 tab after at least 2 hrs; max = 2 tabs/24 hrs PO ondansetron 4 mg tablet,disintegrating 4 mg PO TID PRN (Reason: nausea and vomiting) Qty: 15 0RF (DME) pen needle, diabetic [CareFine Pen Needle] 31 gauge x 5/16 needle See Rx Instructions .Route Qty: 100 3RF Rx Instructions: Use daily with Victoza. Keep A1c under 7 sertraline 50 mg tablet 50 mg PO DAILY Qty: 90 3RF blister packed meds Not Applicable atorvastatin 10 mg tablet 10 mg PO DAILY Qty: 90 3RF Mirena 1 EACH intrauterine device 1 device intrauterine DIRECTED acetaminophen 500 mg Tablet 1,000 mg PO PRN PRN ibuprofen 400 mg Tablet 400 mg PO Q6H PRN Discharge Instructions Instructions: Kidney Stones (ED) Additional Instructions: Ibuprofen every 6 hours as needed for pain. Percocet as needed for pain. Return to ED for fever of 100.4 Medical Decision Making Imaging Data Radiologic Study: Imaging: CT Scan Radiologist's impression: Exam(s) PROCEDURE INFORMATION: Exam: CT Abdomen And Pelvis Without Contrast Exam date and time: 03/13/2023 3:40 AM Age: 42 years old Clinical indication: Abdominal pain and other: L flank; Localized; Lower; Prior surgery; Surgery date: 6+ months; Surgery type: Tubal ligation; Patient HX: L abd and flank pain TECHNIQUE: Imaging protocol: Computed tomography of the abdomen and pelvis without contrast. Radiation optimization: All CT scans at this facility use at least one of these dose optimization techniques: automated exposure control; mA and/or kV adjustment per patient size (includes targeted exams where dose is matched to clinical indication); or iterative reconstruction. COMPARISON: CT ABDOMEN PELVIS WO 01/10/2022 9:14 PM FINDINGS: Limitations: Mild motion artifact. No contrast was administered, limiting evaluation for some pathologies. Liver:? No focal hepatic lesion identified, within the limitations of a noncontrast examination.? Gallbladder and bile ducts:? No radiodense gallbladder calculi seen.? Pancreas: No CT evidence for acute pancreatitis.? Spleen: No splenomegaly. Adrenal glands: No mass. Kidneys and ureters: No right hydronephrosis. Left renal calculus. Left hydroureteronephrosis with perinephric and periureteric stranding. 4 mm calculus at the left ureterovesical junction. Stomach and bowel:? No intestinal obstruction appreciated.? Appendix: No evidence of appendicitis. Intraperitoneal space: No free air. Vasculature: No abdominal aortic aneurysm. Lymph nodes: Nonspecific mesenteric lymph nodes. Urinary bladder: Mild bladder wall thickening commensurate with incomplete distension. Reproductive: Intrauterine device. Bones/joints: No pertinent acute abnormality seen. Soft tissues: No pertinent acute abnormality seen. IMPRESSION: Obstructing left ureterovesical junction calculus. Dictated and Authenticated by: Tanja Sims MD. Ordering:KATIA Lee MD Lab Data Lab results reviewed: Yes I reviewed the patient's lab results. Lab results narrative: RBCs noted in the urine, elevated WBC likely related to vomiting and pain. HPI General Date/Time Provider Initiated Documentation: 03/13/23 02:19 . HPI Narrative: This 42-year-old female patient presents with a chief complaint of left flank and abdominal pain. The patient reports about 4:00 Monday afternoon she started having some pelvic pressure. This is what she has had in the past with kidney stones. Slowly this worsened overnight and she began feeling sharper pain in her back and left lower quadrant. She also has a history of diverticulitis. She denies fever or chills. She did have some intermittent vomiting. Denies diarrhea or dysuria. She is morbidly obese. Really makes the pain better or worse but it was 10 out of 10 on arrival in ED. Patient does say that its been constant and not colicky. Related Data Home Medications Medication Instructions Recorded Confirmed levonorgestrel 21 mcg/24 hours (8 1 device intrauterine DIRECTED 03/17/16 01/11/23 yrs) 52 mg intrauterine device (Mirena) blood sugar diagnostic (Blood #100 ea 01/03/19 01/11/23 Glucose Test strips) lancets #100 ea 01/03/19 01/11/23 acetaminophen 500 mg tablet 1,000 mg PO PRN PRN 03/08/20 01/11/23 ibuprofen 400 mg tablet 400 mg PO Q6H PRN 03/08/20 01/11/23 pen needle, diabetic 31 gauge x #100 ea 09/13/21 01/11/23 5/16 (CareFine Pen Needle) ondansetron 4 mg disintegrating 4 mg PO TID PRN nausea and 10/28/21 01/11/23 tablet vomiting #15 tab-caps sertraline 50 mg tablet 50 mg PO DAILY #90 tab-caps 04/06/22 01/11/23 liraglutide 0.6 mg/0.1 mL (18 mg/3 1.8 mg (0.3 mL) subcut DAILY #9 mL 05/04/22 01/11/23 mL) subcutaneous pen injector (Victoza 3-Chas) fluticasone furoate 27.5 2 spray intranasal DAILY #5.9 mL 11/10/22 01/11/23 mcg/actuation nasal spray,suspension loratadine 10 mg tablet (Claritin) 10 mg PO DAILY 11/10/22 01/11/23 sodium chloride 0.65 % nasal drops 2 drp intranasal Q2H #50 mL 11/10/22 01/11/23 ([place] Saline) blister packed meds Not Applicable 12/28/22 01/11/23 prochlorperazine maleate 5 mg See Rx Instructions PO TID PRN 01/11/23 01/11/23 tablet nausea and vomiting #60 tabs sumatriptan succinate 100 mg tablet See Rx Instructions PO .COMPLEX 01/11/23 01/11/23 #14 tabs topiramate 50 mg tablet (Topamax) 75 mg PO QHS #135 tabs 01/11/23 01/11/23 atorvastatin 10 mg tablet 10 mg PO DAILY #90 tab-caps 02/02/23 Previous Rx's Medication Instructions Recorded blood sugar diagnostic (Blood #100 ea 01/03/19 Glucose Test strips) lancets #100 ea 01/03/19 pen needle, diabetic 31 gauge x #100 ea 09/13/21 5/16 (CareFine Pen Needle) ondansetron 4 mg disintegrating 4 mg PO TID PRN nausea and 10/28/21 tablet vomiting #15 tab-caps sertraline 50 mg tablet 50 mg PO DAILY #90 tab-caps 04/06/22 liraglutide 0.6 mg/0.1 mL (18 mg/3 1.8 mg (0.3 mL) subcut DAILY #9 mL 05/04/22 mL) subcutaneous pen injector ([employer] 3-Chas) fluticasone furoate 27.5 2 spray intranasal DAILY #5.9 mL 11/10/22 mcg/actuation nasal spray,suspension sodium chloride 0.65 % nasal drops 2 drp intranasal Q2H #50 mL 11/10/22 ([place] Saline) prochlorperazine maleate 5 mg See Rx Instructions PO TID PRN 01/11/23 tablet nausea and vomiting #60 tabs sumatriptan succinate 100 mg tablet See Rx Instructions PO .COMPLEX 01/11/23 #14 tabs topiramate 50 mg tablet (Topamax) 75 mg PO QHS #135 tabs 01/11/23 atorvastatin 10 mg tablet 10 mg PO DAILY #90 tab-caps 02/02/23 Allergies Allergy/AdvReac Type Severity Reaction Status Date / Time metformin Allergy Mild Hives Verified 03/13/23 02:18 phenazopyridine HCl AdvReac vomiting Verified 03/13/23 02:18 [From Pyridium] Novacane AdvReac Shakiness Uncoded 03/13/23 02:18 General Stated Complaint: FlankPain EILEEN: 3 Review of Systems Constitutional Constitutional: Denies chills, Denies fever(s), Denies headache(s) and Denies weakness Eyes Eyes: Denies diplopia and Reports other (no redness) ENT Ears, Nose, Mouth, and Throat: Denies otalgia, Denies headache(s), Denies nasal congestion, Denies nasal discharge, Denies neck pain and Denies sore throat Cardiovascular Cardiovascular: Denies chest pain, Denies palpitations and Denies dyspnea Respiratory Respiratory: Denies cough and Denies dyspnea Gastrointestinal Gastrointestinal: Reports abdominal pain, Denies diarrhea, Reports nausea and Reports vomiting Genitourinary Genitourinary: Denies dysuria Musculoskeletal Musculoskeletal: Denies myalgias, Denies muscle weakness, Denies neck pain, Denies numbness and Reports other (edema) Comments: has lower back pain Integumentary/Breasts Skin/Breast: Denies change in pigmentation and Denies rash Neurologic Neurologic: Denies headache(s), Denies numbness and Denies weakness Endocrine Endocrine: Denies palpitations PFSH All Active Problems (Updated 03/13/23 @ 04:19 by Rosa Maldonado MD) Venous insufficiency of both lower extremities (Chronic 01/23/15) JOSSY (obstructive sleep apnea) (Chronic) 02/02/21 Cpap machine and ov at [facility] Type 2 diabetes mellitus (Chronic ~12/2018) IUD surveillance (Acute) Mitral valve regurgitation (Chronic) most recent echo 10/06/2020: mild --> repeat 5 years Obesity (Chronic) Anxiety and depression (Chronic) Dyslipidemia associated with type 2 diabetes mellitus (Chronic) Low HDL; statin for T2DM dx Migraine (Chronic) Status migrainosus (Acute) Sleep apnea (Acute) Kidney stone on left side (Acute) Medical History Diverticula of colon Nephrolithiasis Pulmonic stenosis (01/23/15) Diagnosed 8 y/o (followed at [facility]); Cardiology consult 12/2014; most recent echo 09/2020: RESOLVED Tobacco use disorder QUIT 03/2018 (0.5 PPD x 5 years = 2.5 PY) Surgical History History of colonoscopy (~09/2020) Status post tonsillectomy Status post tubal ligation Family History Mother , CAD at age 55. Diabetes Hypertension Father Heart disease [place], Stents Myocardial infarction Hypertension Brother Diabetes Hypertension Grandmother Diabetes Grandmother Diabetes Maternal Aunt Breast cancer Social History Smoking/Tobacco Use Status: Never Second Hand Exposure: Yes Smoking risk assessment performed?: Yes Alcohol Intake: never Drug use: Never Substance use type: does not use Adopted: No Caregiver/Support person: No Foster care: No Household members: significant other and children Housing: apartment Number of Children: 3 number of grandchildren: 3 Communication Needs: None Education Level: high school Do you need help understanding health information?: Never 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 [employer] Pets and animals: Yes Pets and animals: cat(s) and snake(s) Sexually active: Yes Do you think of yourself as: straight/heterosexual Current gender identity: female Other: x 2 (most recent 10/2020) What is your relationship status?: living with partner How often do you talk on the phone with friends or family?: three or more times per week How often do you get together with friends or relatives?: twice per week Do you belong to any clubs or organized social groups?: no Panel score (0-1 are the most socially isolated patients): 2 What type of physical activity do you participate in: other Details: gym, Duration: 15-30 minutes/day Frequency: 1-2 times per week Special lul needs: No Seatbelt use: always Helmet use: Yes Drive intox or ride w/intox shuttle bus driver: No Water heater temp set <120 deg: Yes Working smoke detector in home: Yes Fire extinguisher in home: Yes Carbon monox detector in home: Yes Firearms in home: No Do you feel safe at home: Yes Do you feel safe in your relationship?: Yes Exam Const General: no acute distress, well developed, well groomed and not in acute distress Nutritional Appearance: well nourished Orientation: alert and oriented x3 HENMT Head: normocephalic and atraumatic Ears: external ears normal Mouth: oropharynx normal and moist mucous membranes Throat: posterior oropharynx normal Eyes Conjunctivae: conjunctivae normal Neck Neck: full ROM and supple Chest Chest: normal inspection of the chest Resp Effort & Inspection: normal respiratory effort Auscultation: clear to auscultation bilaterally Cardio Rate: regular rate Rhythm: regular rhythm Heart Sounds: no murmurs and no rubs GI Inspection: normal to inspection (although morbidly obese) Palpation: soft, tender (left sided belly TTP with no GR) and other (non distended) Auscultation: normal bowel sounds Skin General skin exam: no rashes or lesions noted and other (pink, warm, dry) Neuro General: patient alert, patient awake and patient oriented x3 Speech: speech normal Motor: other (HERNANDEZ) Sensory Exam: no sensory deficits noted Extrem General: normal to inspection, full ROM and pedal edema present Psych Mental Status: mental status grossly normal Speech and Movement: speech and movement normal Affect: normal affect Course Vital Signs Vital signs: Vital Signs Temperature 36.8 C 03/13/23 02:09 Pulse 95 H 03/13/23 02:09 Respiratory Rate 16 03/13/23 02:09 Blood Pressure 149/80 H 03/13/23 02:09 Pulse Oximetry 98 03/13/23 02:09 Temperature 36.8 C 03/13/23 02:09 Temperature Source Oral 03/13/23 02:09 Pulse 95 H 03/13/23 02:09 Respiratory Rate 16 03/13/23 02:09 Respiratory Effort Normal 03/13/23 02:15 Blood Pressure 149/80 H 03/13/23 02:09 Blood Pressure Position Sitting 03/13/23 02:09 Pulse Oximetry 98 03/13/23 02:09 Oxygen Delivery Method Room Air 03/13/23 02:09 Oxygen Flow Rate 0 03/13/23 02:09 Pain Level 10 03/13/23 02:09 Lab/Test Results Lab/Test Results: Laboratory Tests Range/Units 03/13/23 03/13/23 03/13/23 02:20 02:20 02:35 WBC (4.4-10.8) 10^3/uL 15.57 H RBC (3.93-5.22) 10^6/uL 4.94 Hgb (11.2-15.7) g/dL 13.2 Hct (36.0-46.0) % 40.9 MCV (80-95) fL 83 MCH (27.0-33.0) pg 26.7 L MCHC (32.0-36.0) % 32.3 RDW (11.7-14.6) % 14.2 Plt Count (130-400) 10^3/uL 366 MPV (8.0-11.0) fL 10.1 Immature Gran % 0.6 Neutrophils % 60.2 Lymphocytes % 29.9 Monocytes % 7.1 Eosinophils % 1.5 Basophils % 0.7 Nucleated RBC % (0.0-0.3) % 0.0 Absolute Neutrophils (1.2-6.7) 10^3/uL 9.37 H Absolute Lymphocytes (1.2-3.4) 10^3/uL 4.66 H Absolute Monocytes (0.1-0.8) 10^3/uL 1.11 H Absolute Eosinophils (0.0-0.7) 10^3/uL 0.23 Absolute Basophils (0.0-0.2) 10^3/uL 0.11 Sodium (136-145) mmol/L 138 Potassium (3.5-5.1) mmol/L 3.3 L Chloride (98-107) mmol/L 101 Carbon Dioxide (21.0-32.0) mmol/L 25.4 Anion Gap (3-11) mmol/L 11.6 H BUN (7-18) mg/dL 18 Creatinine (0.55-1.02) mg/dL 1.1 H Est GFR (CKD-EPI 2020) (mL/min/1.73m2) 63.94 Glucose (74-106) mg/dL 157 H Calcium (8.5-10.1) mg/dL 10.0 Urine Color (Yellow) Yellow Urine Clarity (Clear) Sl Cloudy Urine pH (5-8) 6.0 Ur Specific Guild (1.005-1.025) 1.025 Urine Protein (Negative) mg/dL Trace H Urine Ketones (Negative) mg/dL Trace H Urine Blood (Negative) Moderate H Urine Nitrite (Negative) Negative Urine Bilirubin (Negative) Negative Urine Urobilinogen (Up to 0.2) mg/dL 0.2 Ur Leukocyte Esterase (Negative) Trace H Urine RBC (0-2) HPF 10-20 H Urine WBC (0-5) HPF 0-2 Ur Epithelial Cells (Negative) HPF Many Urine Crystals (Negative) HPF Negative Urine Bacteria (Negative) HPF Few Urine Mucus (Negative) Negative Ur Culture Indicated? No/Sq. Contamination Urine Glucose (Negative) mg/dL Negative
[2023-03-13 04:06] VITALS: BP 129/72; PULSE 71; RESP 15; O2SAT 98
--- NOTE | 2023-03-13 04:07 | DI.VRAD_ITS ---
PROCEDURE INFORMATION: Exam: CT Abdomen And Pelvis Without Contrast Exam date and time: 03/13/2023 3:40 AM Age: 42 years old Clinical indication: Abdominal pain and other: L flank; Localized; Lower; Prior surgery; Surgery date: 6+ months; Surgery type: Tubal ligation; Patient HX: L abd and flank pain TECHNIQUE: Imaging protocol: Computed tomography of the abdomen and pelvis without contrast. Radiation optimization: All CT scans at this facility use at least one of these dose optimization techniques: automated exposure control; mA and/or kV adjustment per patient size (includes targeted exams where dose is matched to clinical indication); or iterative reconstruction. COMPARISON: CT ABDOMEN PELVIS WO 01/10/2022 9:14 PM FINDINGS: Limitations: Mild motion artifact. No contrast was administered, limiting evaluation for some pathologies. Liver: No focal hepatic lesion identified, within the limitations of a noncontrast examination. Gallbladder and bile ducts: No radiodense gallbladder calculi seen. Pancreas: No CT evidence for acute pancreatitis. Spleen: No splenomegaly. Adrenal glands: No mass. Kidneys and ureters: No right hydronephrosis. Left renal calculus. Left hydroureteronephrosis with perinephric and periureteric stranding. 4 mm calculus at the left ureterovesical junction. Stomach and bowel: No intestinal obstruction appreciated. Appendix: No evidence of appendicitis. Intraperitoneal space: No free air. Vasculature: No abdominal aortic aneurysm. Lymph nodes: Nonspecific mesenteric lymph nodes. Urinary bladder: Mild bladder wall thickening commensurate with incomplete distension. Reproductive: Intrauterine device. Bones/joints: No pertinent acute abnormality seen. Soft tissues: No pertinent acute abnormality seen. IMPRESSION: Obstructing left ureterovesical junction calculus. Dictated and Authenticated by: Tanja Sims MD. Ordering:KATIA Lee MD
== END 2023-03-13 04:56 | disposition home or self-care (01) ==
PROVIDERS: Emergency Provider Emergency Medicine; PCP Nurse Practitioner Family
DX: N20.0 Calculus of kidney (principal); Z87.442 Personal history of urinary calculi; R31.9 Hematuria, unspecified; Z87.891 Personal history of nicotine dependence
CPT/HCPCS: 36415; 80048; 81025; 96361; 96374; 96375; 99284; 74176; 81003; 81015; 85025; J1170; J1885; J2405

== ENCOUNTER 2023-07-28 02:48 | Outpatient (CLI) | payer SELFPAY ==
[2023-07-28 08:11] LABS: Hemoglobin A1C 10.7 % (<5.7)
[2023-07-28 08:12] LABS: Anion Gap 9.8 mmol/L (3-11); BUN 11 mg/dL (7-18); CO2 25.2 mmol/L (21.0-32.0); CREATININE 0.9 mg/dL (0.55-1.02); Calcium 8.8 mg/dL (8.5-10.1); Calculated LDL 45 mg/dL (<100); Chloride 103 mmol/L (98-107); Cholesterol 105 mg/dL (<200); Estimated GFR 81.35 (mL/min/1.73m2); Glucose 317 mg/dL (74-106); HDL Cholesterol 39 mg/dL (40-60); Potassium 3.8 mmol/L (3.5-5.1); Sodium 138 mmol/L (136-145); TSH (W/Ref FT4) 2.25 uIU/mL (0.36-3.74); Triglyceride 107 mg/dL (<150)
[2023-07-28 11:45] LABS: COMMENT (LAB VIEW ONLY) 69.56 mg/dL; Microalb ug/mg Crea 35.8 ug/mg Cr
== END 2023-07-28 02:49 | disposition home or self-care (01) ==
LOC: LBO 02:48 → LBN 10:37
PROVIDERS: Absent Provider Nurse Practitioner Adult Health; PCP Nurse Practitioner Adult Health; Referring Provider Nurse Practitioner Adult Health; Visit Provider Nurse Practitioner Adult Health
DX: E11.69 Type 2 diabetes mellitus with other specified complication (principal); E78.5 Hyperlipidemia, unspecified; F41.8 Other specified anxiety disorders; F32.89 Other specified depressive episodes; E66.8 Other obesity
CPT/HCPCS: 36415; 80048; 80061; 82043; 82570; 83036; 84443

== ENCOUNTER → 2023-08-11 01:47 | Outpatient (CLI) | payer SELFPAY ==
--- NOTE | 2023-08-11 13:12 | DI.MAMMO_ITS ---
Exam(s) MAMMO SCREENING EXAM: MAMMO SCREENING CLINICAL HISTORY: screening,z12.39 TECHNIQUE: Bilateral full field digital CC and MLO mammographic images were obtained with 3D tomosyn thesis and utilizing computer aided detection (CAD). COMPARISON: Available for comparison. FINDINGS: Masses/Architectural Distortion: None seen. Microcalcifications: No suspicious pleomorphic-type are seen. Skin Thickening/Nipple Retraction: None. IMPRESSION: 1. No significant interval change with no specific features of malignancy noted. 2. Unless there is more urgent need, screening mammography is recommended, as per [place] [employer] guidelines. BI-RADS Category 1 - Negative Breast Density - Category B - Scattered areas of fibroglandular density Breast density category C or D implies that the patient has dense breast tissue. Dense breast tissue is very common and is not abnormal but dense breast tissue can make it harder to find cancer on a ma mmogram. Also, dense breast tissue may increase their breast cancer risk. This information about the result of the mammogram report was provided to the patient to raise their awareness. Use this report when you speak with the patient about their risks for breast cancer, which includes their family hist ory. At that time, you may recommend for more screening tests (Ultrasound or MRI) as they might be us eful based on their risk. A negative radiographic report should not delay biopsy if a dominant or clinically suspicious mass is present. Up to ten percent of cancers are not identified on mammography. A negative report may reinforce clinical impression. Adenosis and dense breasts may obscure an underlying neoplasm. False positive reports average 6 to 10%. Patient will receive a letter notifying them of these results.
== END ==
PROVIDERS: PCP Nurse Practitioner Adult Health; Visit Provider Nurse Practitioner Adult Health
DX: Z12.31 Encounter for screening mammogram for malignant neoplasm of breast (principal)
CPT/HCPCS: 77063; 77067

== ENCOUNTER 2023-10-12 14:41 | Outpatient (REF) | payer SELFPAY ==
[2023-10-12 16:32] LABS: COVID-19 PCR Negative (Negative); Influenza A PCR Negative (Negative); Influenza B PCR Negative (Negative); RSV PCR Negative (Negative)
[2023-10-12 16:33] LABS: Source NASOPHARYNX
== END 2023-10-12 14:42 | disposition home or self-care (01) ==
LOC: LBN 14:41
PROVIDERS: PCP Nurse Practitioner Adult Health; Visit Provider Student in an Organized Health Care Education/Training Program
DX: J02.9 Acute pharyngitis, unspecified (principal); R05.9 Cough, unspecified; H93.8X3 Other specified disorders of ear, bilateral; R51.9 Headache, unspecified; R09.81 Nasal congestion; R50.9 Fever, unspecified
CPT/HCPCS: 87637

== ENCOUNTER 2023-11-10 01:52 | Outpatient (CLI) | payer SELFPAY ==
[2023-11-10 08:09] LABS: Hemoglobin A1C 6.8 % (<5.7)
[2023-11-10 08:31] LABS: Anion Gap 7.3 mmol/L (3-11); BUN 14 mg/dL (7-18); CO2 24.7 mmol/L (21.0-32.0); CREATININE 0.8 mg/dL (0.55-1.02); Calcium 8.9 mg/dL (8.5-10.1); Chloride 107 mmol/L (98-107); Estimated GFR 93.12 (mL/min/1.73m2); Glucose 88 mg/dL (74-106); Potassium 3.4 mmol/L (3.5-5.1); Sodium 139 mmol/L (136-145)
== END 2023-11-10 01:53 | disposition home or self-care (01) ==
LOC: LBO 01:52
PROVIDERS: Absent Provider Nurse Practitioner Adult Health; PCP Nurse Practitioner Adult Health; Referring Provider Nurse Practitioner Adult Health; Visit Provider Nurse Practitioner Adult Health
DX: E11.65 Type 2 diabetes mellitus with hyperglycemia (principal)
CPT/HCPCS: 36415; 80048; 83036

== ENCOUNTER 2024-04-19 01:40 | Outpatient (CLI) | payer SELFPAY ==
[2024-04-19 12:49] LABS: Abs Immature Grans 0.03 10^3/uL (0.0-0.06); Absolute Lymphocyte Count 3.72 10^3/uL (1.2-3.4); Absolute Monocyte Count 0.69 10^3/uL (0.1-0.8); Absolute Neutrophil Count 6.34 10^3/uL (1.2-6.7); Basophils % 0.9 %; Eosinophils % 0.9 %; HCT 41.5 % (36.0-46.0); HGB 13.3 g/dL (11.2-15.7); Immature Grans % 0.3 %; Lymphocytes % 33.9 %; MCH 27.1 pg (27.0-33.0); MCV 85 fL (80-95); MPV 10.2 fL (8.0-11.0); Monocytes % 6.3 %; Neutrophils % 57.7 %; Platelet Count 278 10^3/uL (130-400); RDW 14.4 % (11.7-14.6); RDW-SD 44.5 fL; WBC 10.98 10^3/uL (4.4-10.8)
[2024-04-19 13:31] LABS: ALT 15 U/L (14-59); AST 14 U/L (15-37); Albumin 3.9 g/dL (3.4-5.0); Alkaline Phosphatase 85 U/L (46-116); BUN 11 mg/dL (7-18); Bilirubin, Total 0.45 mg/dL (0.2-1.0); CREATININE 0.9 mg/dL (0.55-1.02); Calcium 9.5 mg/dL (8.5-10.1); Chloride 106 mmol/L (98-107); Estimated GFR 80.84 (mL/min/1.73m2); Glucose 100 mg/dL (74-106); Magnesium 2.1 mg/dL (1.8-2.4); Potassium 3.8 mmol/L (3.5-5.1); Sodium 142 mmol/L (136-145); Total Protein 8.2 g/dL (6.4-8.2)
== END 2024-04-19 01:41 | disposition home or self-care (01) ==
LOC: LBO 01:40
PROVIDERS: PCP Nurse Practitioner Adult Health; Referring Provider Student in an Organized Health Care Education/Training Program; Visit Provider Student in an Organized Health Care Education/Training Program
DX: Z91.89 Other specified personal risk factors, not elsewhere classified (principal); R19.7 Diarrhea, unspecified; B99.9 Unspecified infectious disease
CPT/HCPCS: 36415; 80053; 83735; 85025

== ENCOUNTER 2024-06-28 01:26 | Outpatient (CLI) | payer SELFPAY ==
[2024-06-28 07:40] LABS: Hemoglobin A1C 5.3 % (<5.7)
[2024-06-28 07:44] LABS: Anion Gap 9.5 mmol/L (3-11); BUN 17 mg/dL (7-18); CO2 24.5 mmol/L (21.0-32.0); CREATININE 0.9 mg/dL (0.55-1.02); Calcium 8.8 mg/dL (8.5-10.1); Calculated LDL 42 mg/dL (<100); Chloride 105 mmol/L (98-107); Cholesterol 104 mg/dL (<200); Estimated GFR 80.84 (mL/min/1.73m2); Glucose 92 mg/dL (74-106); HDL Cholesterol 45 mg/dL (40-60); Potassium 3.5 mmol/L (3.5-5.1); Sodium 139 mmol/L (136-145); Triglyceride 87 mg/dL (<150)
[2024-06-28 08:34] LABS: COMMENT (LAB VIEW ONLY) 305.77 mg/dL
[2024-06-28 08:35] LABS: Microalb ug/mg Crea 47.7 ug/mg Cr
== END 2024-06-28 01:27 | disposition home or self-care (01) ==
LOC: LBO 01:26
PROVIDERS: PCP Nurse Practitioner Adult Health; Referring Provider Nurse Practitioner Adult Health; Visit Provider Nurse Practitioner Adult Health
DX: E11.9 Type 2 diabetes mellitus without complications (principal); E11.69 Type 2 diabetes mellitus with other specified complication; E78.5 Hyperlipidemia, unspecified; E66.01 Morbid (severe) obesity due to excess calories; Z68.42 Body mass index [BMI] 45.0-49.9, adult
CPT/HCPCS: 36415; 80048; 80061; 82043; 82570; 83036

== ENCOUNTER 2024-07-05 00:23 | Outpatient (CLI) | payer BC, SELFPAY ==
--- NOTE | 2024-07-05 07:45 | DI.MAMMO_ITS ---
Exam(s) MAMMO DIAGNOSTIC BI US BREAST LT LIMITED EXAM: MAMMO DIAGNOSTIC BI and U/S breast LT limited CLINICAL HISTORY: screening rt L breast lump,n63.25,z12.31. TECHNIQUE: Craniocaudal and mediolateral oblique Full Field Digital Mammography views with Computer Aided Diagnosis followed by Tomosynthesis and limited left breast ultrasound. COMPARISON: Comparison is made with prior examinations. FINDINGS: Mammography/Tomosynthesis: Masses/Architectural Distortion: None seen. Microcalcifictions: No suspicious pleomorphic-type are seen. Skin Thickening/Nipple Retraction: None. A marker was placed on the skin surface beneath the breast in the area of palpable concern. This are as unremarkable mammographically. Limited left breast US: The border of the left breast and the chest wall was evaluated sonographicall y as directed by the patient. Echotexture: Normal appearance of the glandular tissue. Shadowing: No suspicious foci. Cyst: None. Solid lesions: None seen. Ductal dilation: None. IMPRESSION: 1. No evidence of malignancy is noted. 2. Unless there is more urgent need, follow-up screening mammography is recommended, as per [place] [employer] guidelines. 3. The findings were discussed with the patient on the date of the examination. BI-RADS Category 1 - Negative Breast Density - Category B - Scattered areas of fibroglandular density Breast density Category C or D implies that the patient has dense breast tissue. Dense breast tissue can make it harder to find cancer on a mammogram. Dense breast tissue is also associated with an incr eased risk of breast cancer. This information about the result of the mammogram report was provided to the patient to raise their awareness. Use this report when you speak with the patient about their risks for breast cancer, which includes their family history. At that time, you may recommend additional screening tests (Ultrasoun d or MRI) as these tests may add significant information. A negative radiographic report should not delay biopsy if a dominant or clinically suspicious mass is present. Up to ten percent of cancers are not identified on mammography. A negative report may reinforce clinical impression. Adenosis and dense breasts may obscure an underlying neoplasm. False positive reports average 6 to 10%. Patient will receive a letter notifying them of these results.
== END 2024-07-05 00:43 ==
PROVIDERS: PCP Nurse Practitioner Adult Health; Visit Provider Nurse Practitioner Adult Health
DX: N63.25 Unspecified lump in the left breast, overlapping quadrants (principal); Z12.31 Encounter for screening mammogram for malignant neoplasm of breast
CPT/HCPCS: 76642; 77062; 77066; G0279

== ENCOUNTER 2024-10-24 09:22 | Outpatient (REF) | payer BC, SELFPAY ==
[2024-10-25 12:02] LABS: Chlamydia Result Negative (Negative); GC Result Negative (Negative)
== END 2024-10-24 09:23 | disposition home or self-care (01) ==
LOC: LBN 09:22
PROVIDERS: PCP Nurse Practitioner Adult Health; Visit Provider Obstetrics & Gynecology
DX: Z30.430 Encounter for insertion of intrauterine contraceptive device (principal)
CPT/HCPCS: 87491; 87591

== ENCOUNTER 2024-11-21 02:43 | Outpatient (CLI) | payer BC, SELFPAY ==
--- NOTE | 2024-11-21 | DI.US_ITS ---
APPROVED REPORT EXAM: Comprehensive 2D, Doppler, and color-flow Echocardiogram Patient Location: Out-Patient Professor/Nurse Anesthetist: Randi Harris RDCS (AE) Indications: H/O pediatric pulmonary stenosis, Mild mitral regurgitation Other Information Study Quality: Adequate Conclusion Normal left ventricular wall thickness and chamber size. Ejection fraction is 60%. Wall motion is n ormal Normal right ventricular size and function Both atria are normal in size There are no structural valvular abnormalities Mild mitral regurgitation Trace tricuspid regurgitation with estimated right ventricular systolic pressure of 33 mmHg Mean gradient across the pulmonic valve is 12 mmHg Wall motion Left Ventricle The left ventricle is normal size. The left ventricular systolic function is normal. The left ventric ular ejection fraction is within the normal range. There is normal left ventricular wall thickness. T here is normal LV segmental wall motion. There is no ventricular septal defect visualized. LVEF is 60 %. Right Ventricle The right ventricle is normal size. The right ventricular systolic function is normal. Atria The left atrium size is normal. The right atrium size is normal. The interatrial septum is intact wit h no evidence for an atrial septal defect. Aortic Valve The aortic valve is normal in structure. Aortic valve is trileaflet. There is no aortic valvular sten osis. No aortic regurgitation is present. Mitral Valve The mitral valve is normal in structure. No evidence of mitral valve stenosis. Mild mitral regurgitat ion. Tricuspid Valve The tricuspid valve is normal in structure. There is no tricuspid valve stenosis. Trace tricuspid reg urgitation. The RVSP is 33.0 mmHg. Pulmonic Valve The pulmonary valve is normal in structure. There is no hemodynamically significant pulmonic valvular stenosis. There is no pulmonic valvular regurgitation. Great Vessels The aortic root is normal in size. The ascending aorta is normal in size. Aortic arch is normal in ca liber. IVC is normal in size and collapses >50% with inspiration. Pericardium There is no pericardial effusion. 2D Dimensions IVSD d PLAX 0.91 cm F: 0.6-1.0 Ao Root d 2.47 cm F: 2.7 - 3.3 LVPW d PLAX 0.90 cm F: 0.6 - 1.0 Ao Asc Diam d 3.06 cm F: 2.3 - 3.1 LVID d PLAX 4.83 cm F: 3.8 - 5.2 RVOT Diameter 2.08 cm LVDs 3.30 cm F: 2.2 - 3.5 LV EF Teichholz 59.6 % FS 31.74 % LV EDV (Teich) 109.3 mL LV ESV (Teich) 44.1 mL M-Mode TAPSE 2.73 cm (M/F) >1.7 Auto EF LV EDV A4C 84.6 mL LV EDV A2C 104.7 mL LV EDV BP 96.2 mL LV ESV A4C 33.7 mL LV ESV A2C 41.2 mL LV ESV BP 37.4 mL LVEF(%) A4C 60.2 % LVEF(%) A2C 60.6 % LVEF(%) BP 61.1 % LV SV A4C 50.9 ml LV SV A2C 63.5 ml LV SV BP 58.8 ml LV CO A4C 3.1 L/min LV CO A2C 3.9 L/min LV CO BP 3.5 L/min HR A4C 60.69 BPM HR A2C 60.81 BPM LV EDV Index (BP) LA Volume LA Length A4C 5.6 cm LA Length A2C 5.5 cm LA Area A4C s 15.32 cm2 LA Area A2C s 15.63 cm2 LA Vol A4C A-L 35.83 mL LA Vol A2C A-L 37.86 mL LA Vol Biplane A-L 37.1 mL LA Vol/BSA A4C A-L LA Vol/BSA A2C A-L LA Vol/BSA BP A-L 21.0 mL/m2 LA Vol A4C MOD 32.6 mL LA Vol A2C MOD 36.2 mL LA Vol BP MOD 34.5 mL RA Volume RA Area A4C 10.8 cm2 RA ESV A4C (A-L) 20.8mL RA Vol/BSA A4C A-L RA Length A4C 4.8 cm RA ESV A4C (MOD) 19.6mL LV Diastology MV E' medial 0.116 (>0.07 m/s) MV E Vmax 1.28 (0.4-1.3 m/s) MV E/E' MED 11.06 (<14) MV A Vmax 0.95 (0.4-1.3 m/s) E/A Ratio 1.3 Aortic Valve AoV Vmax 2.04 m/s LVOT Vmax 1.48 m/s AoV Peak Grad 16.6 mmHg LVOT Peak Grad 8.8 mmHg AoV Area (Vmax) 2.07 cm2 LVOT VTI 0.339 m AoV VTI 0.475 m LVOT Mean Grad 4.9 mmHg AoV Mean Tomi. 1.40 m/s LVOT SV 96.63 mL AoV Mean Grad 9.0 mmHg LVOT Diam s 1.90 cm AoV Area (VTI) 2.03 cm2 AV Regurg Peak Gr. 16.61 mmHg Velocity Ratio 0.73 Mitral Valve MV DT 149 (160-240 msec) MV Vmax TIPS 1.00 m/s MV Mean Grad 1.7 (<2mmHg) MV VTI 0.300 m Pulmonary Valve PV Vmax 2.06 (0.5-1.5 m/s) RVOT Vmax 0.75 m/s PV Peak Grad 17.0 mmHg RVOT Peak Gr. 2.3 mmHg PV Mean Tomi 1.56 m/s RVOT VTI 0.203 m PV Mean Grad 11.0 mmHg RVOT Diam s 2.08 cm (M/F) 2.1-3.5 PVA 1.24 cm2 RVOT Mean Gr. 1.3 mmHg Tricuspid Valve RA Pressure 3.00 mmHg TR Vmax 2.74 m/s TV S' 0.16 m/s TR Peak Grad 29.9 mmHg RVSP (TR) 33.0 mmHg
== END 2024-11-21 03:03 ==
LOC: DI 02:44
PROVIDERS: PCP Nurse Practitioner Adult Health; Visit Provider Internal Medicine Cardiovascular Disease
DX: I37.0 Nonrheumatic pulmonary valve stenosis (principal); I34.0 Nonrheumatic mitral (valve) insufficiency
CPT/HCPCS: 93306

== ENCOUNTER 2025-05-07 18:41 | Outpatient (REF) | payer BC, SELFPAY ==
--- NOTE | 2025-05-07 18:30 | PAPFT_PTH ---
PATIENT: Kathie Fox LOC: [facility] U#:[id number] AGE/SX: 44/F ROOM: RE05/07/[address]: Agatha Shabazz APRN : [id number] BED: DIS: 05/07/2025 SPEC #: [id number] RECD: 05/08/25 12:24 STATUS: LUZ REDelmar #: [id number] DONN: 05/07/25 18:[address]: Agatha Shabazz DEPT: [facility] Cytology RECD BY: Joaquina Encarnacion Tissues: 1 - CX/ENDOCX FOR PAP SMEARS Procedures: PAP THIN PREP/[facility] Screening HPV DNA PROBE Comments: [id number] (HPV 16 & 18/45)
[2025-05-09 11:49] LABS: Chlamydia Result Negative (Negative); GC Result Negative (Negative)
== END 2025-05-07 18:42 | disposition home or self-care (01) ==
LOC: LBN 18:41
PROVIDERS: PCP Nurse Practitioner Adult Health; Visit Provider Nurse Practitioner Adult Health
DX: Z11.3 Encounter for screening for infections with a predominantly sexual mode of transmission (principal); Z12.4 Encounter for screening for malignant neoplasm of cervix
CPT/HCPCS: 87491; 87591; 88142; 87480; 87510; 87624; 87660